=== PATIENT | female | born 1955 | race Caucasian/White ===

== ENCOUNTER → 2024-09-09 10:11 | Outpatient (BNVA) | payer OTHER, SELFPAY | PROVIDERS: PCP Internal Medicine; Visit Provider Internal Medicine | DX: I10 Essential (primary) hypertension (principal); K51.90 Ulcerative colitis, unspecified, without complications; M81.0 Age-related osteoporosis without current pathological fracture; R42 Dizziness and giddiness; F41.9 Anxiety disorder, unspecified; Z79.899 Other long term (current) drug therapy | CPT/HCPCS: 96127 ==

== ENCOUNTER → 2024-09-09 10:11 | Outpatient (AMB) | payer OTHER, SELFPAY ==
--- NOTE | 2024-09-09 10:20 | A.OFFPC_ITS ---
Vital Signs 09/09/24 10:23 Height 5 ft 3 in Weight 133 lb 8 oz BMI 23.6 BP 120/82 Blood Pressure Location Lt brachial Position Sitting Pulse 72 Pulse Source Pulse Oximeter Pulse Oximetry (%) 98 Oxygen Delivery Method Room Air Intake Visit Reasons: new patient Panel Flow Machine Operator Required: No Accompanied by: Self / Same As Patient Allergies acetaminophen [From Percocet] Adverse Reaction (Severe, Verified 09/09/24 11:01) Anxiety oxycodone [From Percocet] Adverse Reaction (Severe, Verified 09/09/24 11:01) Anxiety amoxicillin Adverse Reaction (Verified 09/09/24 11:01) uti Medication List - Last Reconciled 09/09/24 by Brandt Perales MD alendronate 70 mg PO QWEEK amlodipine 5 mg PO DAILY balsalazide 750 mg PO BID lisinopril 20 mg PO DAILY lorazepam 0.5 mg PO DAILY PRN meclizine 25 mg PO DAILY PRN Tobacco use date assessed: 09/09/24 Fall risk assessment: No Falls in past year Last assessed Fall Risk: 09/09/24 Dental Screening Dental Screen Date: 09/09/24 Did you have a dental visit in the last 12 months?: Yes Did you have a dental problem in the last 6 months where you did not have access to dental care?: No Was dental information given to patient?: Patient has dentist HPI new patient HPI Details Patient comes in today to establish care - is a new patient to the practice States that she just moved back here to [facility] from [place] last year; was living in [place] for the past 5 years Reports that she has been on Alendronate for a couple of years now and last had her BMD done about 1 to 1.5 years now Also reports (+) Hx of ulcerative colitis and she has been well-maintained on Colazal for years States that she had her most recent colonoscopy done last year (2023) and was reportedly advised that her colonoscopy was normal She also reports that she suffers from anxiety but she takes her Lorazepam only once a day and on an as-needed basis anxiety -- on Lorazepam PRN She has occasional bouts of vertigo but these are mostly mild and self-limiting She denies any headaches Denies any chest pains, no SOB No nausea/vomiting, no abdominal pain No change in bowel habits noted States that she will need all of her Rx refilled She last had her annual mammogram done about 3 years ago in [facility] Medical History (Updated 09/12/24 @ 07:06 by Brandt Perales MD) Vertigo Anxiety Osteoporosis Essential hypertension Ulcerative colitis Surgical History (Updated 09/12/24 @ 07:08 by Brandt Perales MD) History of colonoscopy History of elbow surgery History of left knee surgery Hx of vaginal hysterectomy Family History Other Dementia Social History Housing: House Patient Tobacco Use Status: Never used Tobacco e-Cigarette/Vaping Use: Never Used Second Hand Smoke Exposure: No service: No Current occupational status: retired Current occupational exposures/hazards: No Cognitive needs: No Hearing needs: No Vision needs: No Questionnaire PHQ-9 Over the last 2 weeks, how often have you been bothered by any of the following problems? 1. Little interest or pleasure in doing things: not at all 2. Feeling down, depressed, or hopeless: several days 3. Trouble falling or staying asleep, or sleeping too much: not at all 4. Feeling tired or having little energy: not at all 5. Poor appetite or overeating: not at all 6. Feeling bad about yourself - or that you are a failure or have let yourself or your family down: not at all 7. Trouble concentrating on things, such as reading the newspaper or watching television: not at all 8. Moving or speaking so slowly that other people could have noticed. Or the opposite - being so fidgety or restless that you have been moving around a lot more than usual: not at all 9. Thoughts that you would be better off or of hurting yourself in some way: not at all Total score: 1 Depression Screening Interpretation: Negative Depression Screening Done: Yes 75099 - PHQ-9 Billing: Yes Source: Developed by Drs. Demarcus Brown, Sharon Andersen, Neno Schumacher and colleagues, with an educational ludy from [employer]. Thrive Questionnaire Date Thrive assessed: 09/09/24 I am a: Patient What is your living situation today?: I have a steady place to live Within the past 12 months, did the food you bought not last and you didn't have the money to get more?: Never true Within the past 12 months, did you worry whether your food would run out before you got money to buy more?: Never true Do you have trouble paying for medicines?: No Do you have trouble getting transportation to medical appointments?: No Do you have trouble paying your heating and electricity bill?: No Do you have trouble taking care of your child, family member or friend?: No Do you have trouble with day-to-day activities such as bathing, preparing meals, shopping, managing finances, etc.?: No Are you currently unemployed and looking for a job?: No Are you interested in more education?: No Please select the resources that you would like help with: None Currently or been in a relationship where the following occur: No concerns reported THRIVE Score: 0 AUDIT C Alcohol Use Questionnaire (AUDIT-C) 1. How often do you have a drink containing alcohol?: Never 3. How often do you have six or more drinks on one occasion?: Never Total Score: 0 Score Reviewed/Action Taken: Yes LAZ-7 AMB Questionnaire LAZ-7 Date LAZ - 7 assessed: 09/09/24 Feeling nervous, anxious, or on edge: 0 = Not at all Not being able to stop or control worryin = Not at all Worrying too much about different things: 0 = Not at all Trouble relaxin = Not at all Being so restless that it is hard to sit still: 0 = Not at all Becoming easily annoyed or irritable: 0 = Not at all Feeling afraid as if something awful might happen: 0 = Not at all Total LAZ-7 score (0-4 normal; 5-9 mild; 10-14 moderate; 15-21 severe): 0 Source: Developed by Drs. Demarcus Brown, Sharon Andersen, Neno Schumacher and colleagues, with an educational ludy from [employer]. Review of Systems Const Denies chills, Denies fatigue, Denies fever(s) and Denies headache(s) ENT Denies dysphagia, Reports dizziness (has occasional bouts of vertigo), Denies otalgia, Denies headache(s), Denies neck pain, Denies odynophagia and Denies sore throat Card Denies chest pain, Denies irregular heart rhythm, Denies palpitations and Denies dyspnea Resp Denies chest congestion, Denies cough and Denies dyspnea GI Denies abdominal pain, Denies hematochezia, Denies constipation, Denies dysphagia, Denies diarrhea, Denies nausea, Denies odynophagia and Denies vomiting Denies difficulty voiding, Denies nocturia, Denies dysuria and Denies urinary urgency Musc Denies back pain and Denies neck pain Skin/Breast Denies rash Neuro Reports dizziness (has occasional bouts of vertigo) and Denies headache(s) Psych Reports anxiety and Denies depression Endo Denies fatigue and Denies palpitations Physical exam (Primary Care) Vital Signs: Last Vital Signs Pulse 72 09/09/24 10:23 BP 120/82 09/09/24 10:23 Pulse Ox 98 09/09/24 10:23 Oxygen Delivery Method Room Air 09/09/24 10:23 BMI result Body Mass Index 23.6 Tobacco/Smoking Status: Tobacco use Status Tobacco use date assessed 09/09/24 09/09/24 10:32 Patient Tobacco Use Status Never used Tobacco 09/09/24 10:32 e-Cigarette/Vaping Use Never Used 09/09/24 10:32 PHQ-9: PHQ-9 Score PHQ-9: Total score 1 09/09/24 11:06 Depression Screening Interpretation: Negative Thrive Assessment: Date of Thrive Assessment Date Thrive assessed 09/09/24 09/09/24 10:32 Currently or been in a relationship where the following occur: No concerns reported Const General: no acute distress and alert HENMT Ears: TM's normal bilaterally and EAC's normal Throat: Yes posterior oropharynx normal and Yes tonsils normal (no TP congestion noted) Neck Neck: Yes supple and No lymphadenopathy Thyroid: Thyroid normal Resp Auscultation: clear to auscultation bilaterally, no rales and no wheezes Cardio Rate: regular rate Rhythm: regular rhythm Heart sounds: no murmurs GI Palpation (GI): Soft to palpation and nontender Auscultation: normal bowel sounds General: Yes no CVA tenderness Back/Spine/Pelvis Back: no CVA tenderness Cervical Spine: No Cervical spine tenderness Thoracic/Lumbar Spine: No lumbar spinal tenderness Extrem General: Yes no clubbing, cyanosis or edema Coding Level of Care Code New Pt Level 4 (32516) Diagnoses Essential hypertension I10 Ulcerative colitis without complications, unspecified location K51.90 Ulcerative colitis location: unspecified ulcerative colitis location Digestive disease complication type: without complication Age-related osteoporosis without current pathological fracture M81.0 Osteoporosis type: age-related Presence of current pathological fracture: without current pathological fracture Vertigo R42 Anxiety F41.9 Encounter for screening mammogram for malignant neoplasm of breast Z12.31 Breast cancer screening modality: mammogram Additional Codes PHQ-9 - 28342 - PHQ-9 Billing: Yes ([id number]) Assessment & Plan Assessment & Plan (1) Essential hypertension: Code(s): I10 - Essential (primary) hypertension Category: Medical Plan: Reinforced low sodium diet - goal is systolic BP of 120 mm or less Continue Lisinopril 20 mg QD and Amlodipine 5 mg QD - Rx refilled Will have patient check her labs and fasting lipids in 4 months for follow up (2) Ulcerative colitis: Code(s): K51.90 - Ulcerative colitis, unspecified, without complications Category: Medical Qualifiers: Ulcerative colitis location: unspecified ulcerative colitis location Digestive disease complication type: without complication Qualified Code(s): K51.90 - Ulcerative colitis, unspecified, without complications Plan: Stable/controlled Continue Balsalazide 750 mg BID She had her follow up colonoscopy last done in 2023 - colonoscopy was reportedly normal Will refer her to GI for continuing follow up and management of her inflammatory bowel condition (3) Osteoporosis: Code(s): M81.0 - Age-related osteoporosis without current pathological fracture Category: Medical Qualifiers: Osteoporosis type: age-related Presence of current pathological fracture: without current pathological fracture Qualified Code(s): M81.0 - Age- related osteoporosis without current pathological fracture Plan: Patient reports that she had her last BMD done about 1 to 1.5 years ago Continue Alendronate 70 mg once a week She is reminded to continue to exercise regularly and to continue taking her OTC Calcium and Vitamin D supplements daily (4) Vertigo: Code(s): R42 - Dizziness and giddiness Category: Medical Plan: States that she has occasional bouts of vertigo but these tend to be self- limited and last only for a few minutes Continue Meclizine 25 mg QD PRN - Rx refilled (5) Anxiety: Code(s): F41.9 - Anxiety disorder, unspecified Category: Medical Plan: Continue Lorazepam 0.5 mg PRN (6) Breast cancer screening: Code(s): Z12.39 - Encounter for other screening for malignant neoplasm of breast Category: Medical Qualifiers: Breast cancer screening modality: mammogram Qualified Code(s): Z12.31 - Encounter for screening mammogram for malignant neoplasm of breast Plan: Will send patient for her annual mammogram Plan Follow up in 4 months Orders: Orders Lipid Panel 4 Months E78.00 - Pure hypercholesterolemia, unspecified TSH reflex Free T4 4 Months E78.00 - Pure hypercholesterolemia, unspecified Vitamin D 25-OH Total 4 Months E55.9 - Vitamin D deficiency, unspecified Vitamin B12 and Folate 4 Months E53.8 - Deficiency of other specified B group vitamins MM tomosynthesis screening BI 09/09/24 Z12.31 - Encounter for screening mammogram for malignant neoplasm of breast Complete Blood Count Auto Diff 4 Months D64.9 - Anemia, unspecified Comprehensive [place]. Panel Fast 4 Months E78.00 - Pure hypercholesterolemia, unspecified UA CC w/rflx Micro + Cult 4 Months R30.0 - Dysuria Referrals Gastroenterology Referral K51.90 - Ulcerative colitis, unspecified, without complications Medications: New balsalazide 750 mg PO BID 90 days 180 caps 1RF K51.90 - Ulcerative colitis, unspecified, without complications lisinopril 20 mg PO DAILY 90 days 90 tabs 1RF I10 - Essential (primary) hypertension alendronate 70 mg PO QWEEK 3 months 13 tabs 1RF M81.0 - Age-related osteoporosis without current pathological fracture amlodipine 5 mg PO DAILY 90 days 90 tabs 1RF I10 - Essential (primary) hypertension lorazepam 0.5 mg PO DAILY 90 days PRN 90 tabs 0RF anxiety F41.9 - Anxiety disorder, unspecified meclizine 25 mg PO DAILY 90 days PRN 90 tabs 0RF dizziness/vertigo R42 - Dizziness and giddiness
== END | disposition home or self-care (01) ==
PROVIDERS: PCP Internal Medicine; Visit Provider Internal Medicine

== ENCOUNTER 2024-10-07 15:00 | Outpatient (REF) | payer MEDICARE, SELFPAY ==
--- OUTSIDE RECORDS SUMMARY | 2024-10-07 18:33 | XMS_ITS ---
Author Organization [facility] Address [address] [place] [address] Care Team Providers Care Oil And Gas Field Technician Name Role Phone Roberta Dhillon Primary Care Provider Abner Conway Unavailable [phone] REASON FOR VISIT PredniSONE TAPER Medications Medication SIG (Take, Route, Fr equency, Duration) Notes Start Date End Date Status predniSONE 10 MG as directed Orally t aper 40 mg once daily for 3 weeks, then 30 mg for 1 week, 20 mg for 1 week, 10 mg for 1 week for 42 days 05/07/2023 Active Encounters Encounter Location Date Provider Diagnosis [place] [facility] [address] [place], [place] [id number] 05/07/2023 Abner Watts Plan Of Treatment Medication Medication Name Sig Start Date Stop Date Notes predniSONE 10 MG as directed Orally t aper 40 mg once daily for 3 weeks, then 30 mg for 1 week, 20 mg for 1 week, 10 mg for 1 week for 42 days 05/07/2023 Prednisone Progress Notes * Katharina STOCKTONDOB: (68 yo F)Acc No.[id number]:05/07/2023 Patient:?XaviercainalfredoGabi axel :1955???Age:68 Y???Sex:Female Address:[place] [address] * Refills? Stop Prednisone Start predniSONE Tablet, 10 MG, Orally, 126, as directed, taper 40 mg once daily for 3 weeks, then 30 mg for 1 week, 20 mg for 1 week, 10 mg for 1 week, 42 days, Refills=0 * true * Date:? Generated for Katie goel/Yuliya/Jordon on:?10/07/2024 06:33 PM EST
--- OUTSIDE RECORDS SUMMARY | 2024-10-07 18:33 | XMS_ITS ---
Author Organization [facility] Address [address] [place] [address] Care Team Providers Care Armored Machine Operator Name Role Phone Roberta Dhillon Primary Care Provider Abner Conway Unavailable [phone] Medications Medication SIG (Take, Route, Fr equency, Duration) Notes Start Date End Date Status Mesalamine 1000 MG 1 suppository at bed time Rectal Once a day for 30 days 07/09/2023 Ac tive predniSONE 10 MG as directed Orally t aper 40 mg once daily for 3 weeks, then 30 mg for 1 week, 20 mg for 1 week, 10 mg for 1 week for 42 days 05/07/2023 Unknown GaviLyte-G [id number] GM as directed Orally a s directed for 2 DAYS 05/07/2023 Unknown Lisinopril Unknown Amlodipine Unknown Alendronate Sodium U nknown Balsalazide Disodium Unknown Problems Problem Type SNOMED Code ICD Code Onset Dates Problem Status W/U Status Risk Notes Problem Left sided ulcerative colitis (206698182) Left sided colitis without complications (K51.50) Active confirmed Encounters Encounter Location Date Provider Diagnosis [facility] [address] [place], [place] [id number] 07/09/2023 Abner Watts Left sided colitis without complications K51.50 and Acute colitis K52.9 Assessments Encounter Date Diagnosis (ICD Code) Assessment Notes Treatment Notes Treatment Clinical Notes Section Notes 07/09/2023 Left sided colitis without complications (ICD-10 - K51.50) 07/09/2023 Acute colitis (ICD-10 - K52.9) Plan Of Treatment Medication Medication Name Sig Start Date Stop Date Notes Mesalamine 1000 MG 1 suppository at bed time Rectal Once a day for 30 days 07/09/2023 Next Appt Details Follow Up: prn, Reason: Progress Notes * Katharina STOCKTONDOB: (68 yo F)Acc No.[id number]:07/09/2023 Patient:?Gabi Stockton yl Provider:Zoraida Watts :1955???Age:68 Y???Sex:Female D ate:07/09/2023 Address:[facility] Pcp:Roberta Dhillon * * Sign off status: Completed true * Provider:Zoraida Watts Date:?07/09/2023 Generated for Katie goel/Yuliya/Jordon on:?10/07/2024 06:33 PM EST
--- OUTSIDE RECORDS SUMMARY | 2024-10-07 18:34 | XMS_ITS ---
Author Organization [facility] Address [address] [place] [address] Care Team Providers Care Nutrient Management Specialist Name Role Phone Roberta Dhillon Primary Care Provider Abner Conway Unavailable [phone] Allergies Allergen (clinical drug ingredient) Drug/Non Drug Allergy documented on EMR Reaction Allergy Type Onset Date Status acetaminophen / oxycodone Percocet Unknown Drug Allergy Active amoxicillin Amoxicillin Unknown Drug Allergy Act kevin REASON FOR VISIT Post procedure visit, LAB REVIEW Medications Medication SIG (Take, Route, Fr equency, Duration) Notes Start Date End Date Status Amlodipine Active Lisinopril Active Balsalazide Disodium Active Alendronate Sodium A ctive Vital Signs Respiratory Rate 14 /min 07/18/2023 Height 63 in 07/18/2023 Weight 134 lbs 07/18/2023 BMI 23.73 kg/m2 07/18/2023 Encounters Encounter Location Date Provider Diagnosis [place] [facility] - [facility] [address] [place], [place] [id number] 07/18/2023 Abner Watts Other ulcerative colitis without complications K51.80 Assessments Encounter Date Diagnosis (ICD Code) Assessment Notes Treatment Notes Treatment Clinical Notes Section Notes 07/18/2023 Other ulcerative colitis without complications (ICD-10 - K51.80) - Reviewed with patient the recent colonoscopy findings which support remission status. - Continue balsalazide to maintain remission. - Perform routine colonoscopies every 2 to 3 years to monitor for potential malignancy due to increased risk of colon cancer associated with ulcerative colitis. - Annual follow-up visits unless symptoms such as abdominal pain or GI bleeding recur. Plan Of Treatment Treatment Notes Assessment Notes Other ulcerative colitis wit hout complications - Reviewed with patient the recent colonoscopy findings which support remission status. - Continue balsalazide to maintain remission. - Perform routine colonoscopies every 2 to 3 years to monitor for potential malignancy due to increased risk of colon cancer associated with ulcerative colitis. - Annual follow-up visits unless symptoms such as abdominal pain or GI bleeding recur. Next Appt Details Follow Up: prn, Reason: Progress Notes * Katharina STOCKTONDOB: (68 yo F)Acc No.[id number]:07/18/2023 Progress Notes Patient:?Gabi Stockton yl Provider:?Abner Watts :1955???Age:68 Y???Sex:Female D ate:07/18/2023 Address:[address] [place], [place] [address] Pcp:Roberta Dhillon Subjective: * Chief Complaints: * ???Post procedure visit, LAB REVIEW * HPI: ???:? The patient is a 68 year old female who has a history of ulcerative colitis presenting for follow up after colonoscopy. In the past, the patient attempted to discontinue balsalazie previously, which resulted in the return of symptoms, specifically rectal bleeding. The patient reports that the symptoms resolved upon resuming medication. The most recent colonoscopy showed minimal erythema in the rectum, but the remainder of the colon appeared normal, with biopsies confirming no active colitis. The patient is currently taking balsalazide and has been prescribed mesalamine suppositories which are not covered by her insurance. The patient is asymptomatic at present. * Medical History:? * Surgical History:?GALLBLADDE R HYSTERECTOMY sacrocopopexy * Hospitalization/Major Diagno stic Procedure:? * Family History:?Father: dece ased.?Mother: .? * Social History:?Drugs/Alcohol:?Alcohol Use: none. Tobacco use: Nonsmoker. * Medications:?TakingBalsalazi de Disodium Alendronate Sodium Amlodipine Lisinopril Medication List reviewed and reconciled with the patientTaking Balsalazide Disodium Taking Alendronate Sodium Taking Amlodipine Taking Lisinopril Medication List reviewed and reconciled with the patient * Allergies:?PercocetAmoxicill inno[Allergies Verified] Objective: * Vitals:?Ht: 63 in, Wt:134 lb s, BMI:23.73 Index, RR:14, Wt-k.78. * Physical Examination:?General: Alert, in no acute cardiopulmonary distress. ? Mental Status: Oriented to person, place and time. Normal affect. ? Head: Normocephalic. ? Eyes: Pupils are equal, round and reactive to light. Extraocular muscles intact. ? Ear, Nose and Throat: Oropharynx clear, mucous membranes moist. Ears and nose without masses, lesions or deformities. Trachea midline. ? Neck: Supple, Full range of motion. ? Respiratory: Clear to auscultation and percussion. No wheezing, rales or rhonchi. ? Cardiovascular: Heart sounds normal. No thrills. Regular rate and rhythm, no murmurs, rubs or gallops. ? Gastrointestinal: Abdomen soft, non-tender, non-distended. Normal bowel sounds. No pulsatile mass. No hepatosplenomegaly. ? Genitourinary: No costovertebral angle tenderness. ? Neurologic: No focal neurological deficits. Moves all extremities spontaneously. Sensation intact bilaterally. Assessment: * Assessment: 1.?Other ulcerative colitis without complications - K51.80 (Primary)? Plan: * Treatment: * Procedure Codes:?G8427 DOC M EDS VERIFIED W/PT OR RE * Follow Up:?prn * * Sign off status: Completed true * Provider:Zoraida Watts Date:?07/18/2023 Generated for Katie goel/Yuliya/eTransmitting on:?10/07/2024 06:33 PM EST History and Physical Notes * Physical Examination Category Sub-Category Detail Notes Section Note s General: Alert, in no acute cardiopulmonary distress. Mental Status: Oriented to person, place and time. Normal affect. Head: Normocephalic. Eyes: Pupils are equal, round and reactive to light. Extraocular muscles intact. Ear, Nose and Throat: Oropharynx clear, mucous membranes moist. Ears and nose without masses, lesions or deformities. Trachea midline. Neck: Supple, Full range of motion. Respiratory: Clear to auscultation and percussion. No wheezing, rales or rhonchi. Cardiovascular: Heart sounds normal. No thrills. Regular rate and rhythm, no murmurs, rubs or gallops. Gastrointestinal: Abdomen soft, non-tender, non-distended. Normal bowel sounds. No pulsatile mass. No hepatosplenomegaly. Genitourinary: No costovertebral angle tenderness. Neurologic: No focal neurological deficits. Moves all extremities spontaneously. Sensation intact bilaterally.
--- OUTSIDE RECORDS SUMMARY | 2024-10-07 18:34 | XMS_ITS | Patient Health Record ---
Author Organization [facility] Address [address] [place] [address] Care Team Providers Care Rail Splitter Name Role Phone Roberta Dhillon Primary Care Provider Komal coello MacAbner ibarra Unavailable [phone] Allergies Allergen (clinical drug ingredient) Drug/Non Drug Allergy documented on EMR Reaction Allergy Type Onset Date Status acetaminophen / oxycodone Percocet Unknown Drug Allergy Active amoxicillin Amoxicillin Unknown Drug Allergy Act kevin Reason For Referral No Information Medications Medication SIG (Take, Route, Fr equency, Duration) Notes Start Date End Date Status Amlodipine Active Lisinopril Active Balsalazide Disodium Active Alendronate Sodium A ctive Problems Problem Type SNOMED Code ICD Code Onset Dates Problem Status W/U Status Risk Notes Problem Left sided ulcerative colitis (120429062) Left sided colitis without complications (K51.50) Active confirmed Problem 12837435 Other ulcerative colitis without complications (K51.80) Active confirmed Plan Of Treatment Pending Test Test Name Order Date CMP 05/07/2023 CBC 05/07/2023 CRP 05/07/2023 CLOSTRIDIUM DIFFICILE TOXIN A AND B, EIA 05/07/2023 Hepatitis B surface antigen 05/07/2023 Calprotectin, Fecal 05/07/2023 COLONOSCOPY 05/07/2023 Quantiferon Gold TB Test 05/07/2023 Insurance Providers Payer Name Payer Address Payer Phone Subscriber Number Group Number Insured Name Patient Relationship to Insured Coverage Start Date Coverage End Date [employer] REPLACEMENT [address] [place] [address] [phone] [id number] Katharina Mcfarland Self - patient is the insured Medical (General) History Medical History History ICD Code UC HPB OSTEOPOROSIS Surgical History Surgery Date(Month/Year) sacrocopopexy 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
== END 2024-10-07 15:01 | disposition home or self-care (01) ==
LOC: HO.MAMMO 15:00
PROVIDERS: PCP Internal Medicine; Visit Provider Internal Medicine
DX: Z12.31 Encounter for screening mammogram for malignant neoplasm of breast (principal)
CPT/HCPCS: 77063; 77067

== ENCOUNTER → 2024-10-07 15:15 | Outpatient (BNV) | payer MEDICARE, SELFPAY | PROVIDERS: PCP Internal Medicine; Visit Provider Internal Medicine | DX: Z12.31 Encounter for screening mammogram for malignant neoplasm of breast (principal) | CPT/HCPCS: 77063; 77067 ==

== ENCOUNTER 2024-12-08 08:47 | Outpatient (AMB) | payer OTHER, SELFPAY ==
--- NOTE | 2024-12-08 08:56 | MHC.OFFVIS ---
Vital Signs 12/08/24 08:58 Height 5 ft 3 in Weight 130 lb 1.164 oz BMI 23.0 BP 123/67 Blood Pressure Location Lt brachial Position Sitting Pulse 68 Intake Visit Reasons: Ulcerative Colitis Intake Note: Katharina presents in the office as a new patient for UC. CC: She came from [place] and she needs a new GI specialist. She was originally from here and moved for 5 years - states she is now back here! Last colo was in [place]. Construction Equipment Operator Required: No Allergies acetaminophen [From Percocet] Adverse Reaction (Severe, Verified 12/08/24 08:58) Anxiety oxycodone [From Percocet] Adverse Reaction (Severe, Verified 12/08/24 08:58) Anxiety amoxicillin Adverse Reaction (Verified 12/08/24 08:58) uti HPI Comments Details: 69 y.o F with PMH of UC diagnosed in her 40s, prev used to be under care of Dr Calvert and then moved to [place] in 2019. Returned Jul 2024 so looking to establish care. IBD Hx: Location: Pt doesnt know Age/yr of diagnosis: Early 2004, 49 y.o Prev meds: Asacol Current meds: balsalazide 750 BID since 2020 Steroid use: 1-2 times - 2022 for a flare Surgeries: N/A Recent endoscopy: [address] [facility] Recent imaging: EIM: None Fam hx: possibly in aunt - had her colon taken out Currently intermittent abd discomfort in the suprapubic area. Has 1-2 BMs per day that are formed. No blood. No joint pains, vision changes. [facility] History Vertigo Anxiety Osteoporosis Essential hypertension Ulcerative colitis Surgical History History of colonoscopy History of elbow surgery History of left knee surgery Hx of vaginal hysterectomy Family History Other Dementia Social History Housing: House Patient Tobacco Use Status: Never used Tobacco e-Cigarette/Vaping Use: Never Used Second Hand Smoke Exposure: No service: No Current occupational status: retired Current occupational exposures/hazards: No Cognitive needs: No Hearing needs: No Vision needs: No Review of Systems Const All systems reviewed & are unremarkable except as noted in HPI and below Physical Exam Vital Signs: Last Vital Signs Pulse 68 12/08/24 08:58 BP 123/67 12/08/24 08:58 BMI result Body Mass Index 23.0 No apparent distress Nonicteric Abdomen soft, nondistended Alert and oriented x3, normal gait Assessment & Plan Assessment & Plan (1) Ulcerative colitis: Code(s): K51. - Ulcerative colitis, unspecified, without complications Category: Medical Qualifiers: Ulcerative colitis location: unspecified ulcerative colitis location Digestive disease complication type: without complication Qualified Code(s): K51. - Ulcerative colitis, unspecified, without complications Plan Ulcerative colitis. - Quiescent based on clinical hx - Disease and therapy: remission. - Fecal calpro: ordered. - Check CBC, CMP - Will also get hep serology and TSPOT in case needs biologic in future - Nutrition: Check iron, B12 and folate - Immunization: Uptodate - Bone Health: Known osteoporosis. Check Vit D and dexa. - Cancer prevention: IBD dysplasia: colonoscopy due 2024 - msg sent to book this. Miralax prep preferred by pt. Pt to also bring records from [place]. Sun safety discussed. Up to date on pap and mammo. Orders: Orders C Reactive Protein Today K51.90 - Ulcerative colitis, unspecified, without complications Complete Blood Count no Diff Today K51.90 - Ulcerative colitis, unspecified, without complications Comprehensive Met. Panel Today K51.90 - Ulcerative colitis, unspecified, without complications Hepatitis A IgG Today K51.90 - Ulcerative colitis, unspecified, without complications Hepatitis B Core Antibody Today K51.90 - Ulcerative colitis, unspecified, without complications Hepatitis B Surface Antibody Today K51.90 - Ulcerative colitis, unspecified, without complications Hepatitis C Antibody Today K51.90 - Ulcerative colitis, unspecified, without complications T Spot TB Today K51.90 - Ulcerative colitis, unspecified, without complications XR DEXA axial skeleton Today M81.0 - Age-related osteoporosis without current pathological fracture Calprotectin, Fecal Today K51.90 - Ulcerative colitis, unspecified, without complications Vitamin B12 and Folate Today K51.90 - Ulcerative colitis, unspecified, without complications Vitamin D 25-OH Total Today K51.90 - Ulcerative colitis, unspecified, without complications Transglutaminase IgA Today K51.90 - Ulcerative colitis, unspecified, without complications Immunoglobulin A Today K51.90 - Ulcerative colitis, unspecified, without complications Hepatitis B Surface Antigen Today K51.90 - Ulcerative colitis, unspecified, without complications Medications: New polyethylene glycol 3350 (Miralax) mix in 64oz gatorade for colonoscopy prep 238 grams PO ONCE 238 grams 0RF Coding Level of Care Code New Pt Level 4 (76520) Complex EM visit Add On G2211 Diagnoses Ulcerative colitis without complications, unspecified location K51.90 Ulcerative colitis location: unspecified ulcerative colitis location Digestive disease complication type: without complication
[2024-12-08 08:58] VITALS: BP 123/67; PULSE 68; BMI 23.0
--- OUTSIDE RECORDS SUMMARY | 2024-12-08 09:13 | XMS_ITS ---
Author Organization [facility] Address [address] [place] [address] Care Team Providers Care Radio Reporter Name Role Phone Roberta Dhillon Primary Care Provider Abner Conway Unavailable [phone] Medications Medication SIG (Take, Route, Fr equency, [...] Risk Notes Problem Left sided ulcerative colitis (844239250) Left sided colitis without complications (K51.50) Active confirmed Encounters Encounter Location Date Provider Diagnosis [facility] [address] [place], [place] [id number] 07/09/2023 Abner Watts Left sided colitis without [...] Notes * Katharina STOCKTONDOB: (68 yo F)Acc No.[id number]:07/09/2023 Patient:?Gabi Stockton yl Provider:Zoraida Watts :1955???Age:68 Y???Sex:Female D ate:07/09/2023 Address:[facility] [address] [facility] Pcp:Roberta Dhillon * * Sign off status: Completed true * Provider:Zoraida Watts Date:?07/09/2023 Generated for Katie goel/Yuliya/Jordon on:?12/08/2024 09:12 AM EDT
--- OUTSIDE RECORDS SUMMARY | 2024-12-08 09:13 | XMS_ITS ---
Author Organization [facility] Address [address] [place] [address] Care Team Providers Care Icebox Man Name Role Phone Roberta Dhillon Primary Care Provider Abner Conway Unavailable [phone] Allergies Allergen (clinical drug ingredient) Drug/Non Drug [...] Active Alendronate Sodium A ctive Vital Signs Height 63 in 07/18/2023 Weight 134 lbs 07/18/2023 BMI 23.73 kg/m2 07/18/2023 Respiratory Rate 14 /min 07/18/2023 Encounters Encounter Location Date Provider Diagnosis [place] [facility] - [facility] [address] [place], [place] [id number] 07/18/2023 Abner Watts Other ulcerative colitis without [...] Notes * Katharina STOCKTONDOB: (68 yo F)Acc No.[id number]:07/18/2023 Progress Notes Patient:?Gabi Stockton yl Provider:?Abner Watts :1955???Age:68 Y???Sex:Female D ate:07/18/2023 Address:[address] [place], [place] [address] Pcp:Roberta Dhillon Subjective: * Chief Complaints: * [...] Provider:Zoraida Watts Date:?07/18/2023 Generated for Katie goel/Yuliya/eTransmitting on:?12/08/2024 09:13 AM EDT History and Physical Notes * Physical Examination [...]
--- OUTSIDE RECORDS SUMMARY | 2024-12-08 09:13 | XMS_ITS | Patient Health Record ---
Author Organization [facility] Address [address] [place] [address] Care Team Providers Care Grit Removal Operator Name Role Phone Jacquie Roberta Primary Care Provider Komal coello Mac Abner Unavailable [phone] Allergies Allergen (clinical drug ingredient) Drug/Non Drug Allergy documented on EMR Reaction Allergy Type Onset Date Status acetaminophen / oxycodone Percocet Unknown Drug Allergy Active amoxicillin Amoxicillin Unknown Drug Allergy Act keivn Reason For Referral No Information Medications Medication SIG (Take, Route, Fr equency, Duration) Notes Start Date End Date Status Amlodipine Active Lisinopril Active Balsalazide Disodium Active Alendronate Sodium A ctive Problems Problem Type SNOMED Code ICD Code Onset Dates Problem Status W/U Status Risk Notes Problem 18910131 Other ulcerative colitis without complications (K51.80) Active confirmed Problem Left sided ulcerative colitis (398381391) Left sided colitis without complications (K51.50) Active confirmed Plan Of Treatment Pending Test [...] Coverage Start Date Coverage End Date [employer] [address] [place] [address] [phone] [id number] Katharina Mcfarland Self - patient is the insured Medical (General) History Medical History History ICD Code UC HPB OSTEOPOROSIS Surgical History Surgery Date(Month/Year) GALLBLADDER sacrocopopexy HYSTERECTOMY
== END 2024-12-08 09:45 | disposition home or self-care (01) ==
LOC: HO.HGI 08:48
PROVIDERS: PCP Internal Medicine; Visit Provider Internal Medicine
DX: K51.90 Ulcerative colitis, unspecified, without complications (principal)
CPT/HCPCS: 99204; G2211

== ENCOUNTER 2024-12-08 08:47 | Outpatient (REF) | payer OTHER, SELFPAY ==
[2024-12-08 11:51] LABS: Hematocrit 41.5 % (37.0-47.0); Hemoglobin 14.3 g/dl (12.0-16.0); Mean Corpuscular HGB Conc 34.5 g/dl (31.0-35.0); Mean Corpuscular Hemoglobin 31.8 pg (27.0-33.0); Mean Corpuscular Volume 92.2 fL (80.0-98.0); Mean Platelet Volume 10.5 fL (9.4-12.3); Platelet Count 259 X10*3/uL (160-400); Red Cell Distribution Width 12.2 % (11.0-16.0); White Blood Count 6.6 X10*3/uL (4.8-10.8)
[2024-12-08 12:30] LABS: Alanine Aminotransferase 22 U/L (0-31); Albumin Level 4.4 g/dL (3.5-5.0); Alkaline Phosphatase 51 U/L (39-117); Anion Gap 9 (12-20); Aspartate Amino Transferase 21 U/L (5-31); Bilirubin Total 0.5 mg/dL (0.0-1.0); Blood Urea Nitrogen 12 mg/dL (9-16); C Reactive Protein 0.19 mg/dL (< or = 0.50); Calcium 9.4 mg/dL (8.4-10.2); Carbon Dioxide 28 mmol/L (22-29); Chloride 109 mmol/L (96-108); Estimated Glomerular Filt Rate > 60; Glucose Random 91 mg/dL (60-115); Potassium 4.1 mmol/L (3.3-5.1); Sodium 142 mmol/L (135-145); Total Protein 7.1 g/dL (6.5-8.0)
[2024-12-08 12:47] LABS: Vitamin D 25-OH Total 42.5 ng/mL (>30)
[2024-12-08 12:55] LABS: HBS Num1 0.62 mIU/mL (0-7.99); HBc Num1 0.07 S/CO (0.00-0.79); HBsAGNum1 0.24 S/CO (0.00-0.99); Hepatitis B Core Antibody Nonreactive (Nonreactive); Hepatitis B Surface Antigen Negative (Negative); ~HepC Num1 0.09 S/CO (0.00-0.79); ~Hepatitis B Surface Antibody NONREACTIVE (Nonreactive); ~Hepatitis C Antibody Nonreactive (Nonreactive)
[2024-12-08 12:59] LABS: Vitamin B12 307 pg/mL (200-900)
[2024-12-09 04:00] LABS: Hepatitis A Antibody IgG Nonreactive (Nonreactive); ~Hepatitis A Antibody IgG 0.33 S/CO (0.00-0.99)
[2024-12-09 07:08] LABS: Immunoglobulin A 141 mg/dL (70-320)
[2024-12-09 21:24] LABS: Transglutaminase IgA <1.0 U/mL
[2024-12-11 09:54] LABS: TS Negative Control Passed; TS Panel A 0; TS Panel B 0; TS Positive Control Passed; TSpotTB Negative (Negative)
== END 2024-12-08 08:48 | disposition home or self-care (01) ==
LOC: HO.LAB 08:47
PROVIDERS: PCP Internal Medicine; Visit Provider Internal Medicine
DX: K51.90 Ulcerative colitis, unspecified, without complications (principal)
CPT/HCPCS: 36415; 80053; 82306; 82607; 82746; 82784; 85027; 86140; 86364; 86481; 86704; 86706; 86708; 86803; 87340

== ENCOUNTER 2024-12-12 16:40 | Outpatient (REF) | payer OTHER, SELFPAY ==
--- OUTSIDE RECORDS SUMMARY | 2024-12-13 11:17 | XMS_ITS ---
Author Organization [facility] Address [address] [place] [address] Care Team Providers Care Lawyer Name Role Phone Roberta Dhillon Primary Care Provider Abner Conway Unavailable [phone] Medications Medication SIG (Take, Route, Fr equency, [...] Risk Notes Problem Left sided ulcerative colitis (443525272) Left sided colitis without complications (K51.50) Active confirmed Encounters Encounter Location Date Provider Diagnosis [facility] [address] [place], [place] [id number] 07/09/2023 Abner Watts Left sided colitis without [...] Notes * Katharina STOCKTONDOB: (68 yo F)Acc No.[id number]:07/09/2023 Patient:?Gabi Stockton yl Provider:Zoraida Watts :1955???Age:68 Y???Sex:Female D ate:07/09/2023 Address:[facility] [address] [facility] Pcp:Roberta Dhillon * * Sign off status: Completed true * Provider:Zoraida Watts Date:?07/09/2023 Generated for Katie goel/Yuliya/Jordon on:?12/13/2024 11:17 AM EDT
--- OUTSIDE RECORDS SUMMARY | 2024-12-13 11:18 | XMS_ITS | Patient Health Record ---
Author Organization [facility] Address [address] [place] [address] Care Team Providers Care Forest Economics Professor Name Role Phone Roberta Dhillon Primary Care Provider Komal coello MacAbner ibarra Unavailable [phone] Allergies Allergen (clinical drug ingredient) Drug/Non Drug [...] Problem Status W/U Status Risk Notes Problem 28756919 Other ulcerative colitis without complications (K51.80) Active confirmed Problem Left sided ulcerative colitis (661605960) Left sided colitis without complications (K51.50) Active [...] Coverage End Date [employer] MED[employer]ARE [address] [place] [address] [id number] Katharina Mcfarland Self - patient is the insured Medical (General) History Medical History History ICD Code UC HPB OSTEOPOROSIS Surgical History Surgery Date(Month/Year) sacrocopopexy 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
--- OUTSIDE RECORDS SUMMARY | 2024-12-13 11:18 | XMS_ITS ---
Author Organization [facility] Address [address] [place] [address] Care Team Providers Care Curing Finisher Name Role Phone Roberta Dhillon Primary Care Provider Abner Conway Unavailable [phone] Allergies Allergen (clinical drug ingredient) Drug/Non Drug [...] 07/18/2023 Encounters Encounter Location Date Provider Diagnosis [place] [facility] - [facility] [address] [place], [place] [id number] 07/18/2023 Abner Watts Other ulcerative colitis without [...] Notes * Katharina STOCKTONDOB: (68 yo F)Acc No.[id number]:07/18/2023 Progress Notes Patient:?Gabi Stockton yl Provider:?Abner Watts :1955???Age:68 Y???Sex:Female D ate:07/18/2023 Address:[address] [place], [place] [address] Pcp:Roberta Dhillon Subjective: * Chief Complaints: [...] Provider:Zoraida Watts Date:?07/18/2023 Generated for Katie goel/Yuliya/eTransmitting on:?12/13/2024 11:17 AM EDT History and Physical Notes * [...]
[2024-12-17 20:18] LABS: Calprotectin, Fecal 49 mcg/g
== END 2024-12-12 16:41 | disposition home or self-care (01) ==
LOC: HO.LNP 16:40
PROVIDERS: Visit Provider Internal Medicine
DX: K51.90 Ulcerative colitis, unspecified, without complications (principal)
CPT/HCPCS: 83993

== ENCOUNTER 2025-01-05 10:56 | Outpatient (REF) | payer OTHER, SELFPAY ==
--- NOTE | ~2025-01-05 | MM_ITS ---
EXAMINATION: DXA BONE DENSITY AXIAL HISTORY: M81.0 - Age-related osteoporosis without current pathological fracture TECHNIQUE: [employer] (ZEEP) Dual energy absorptiometry (DEXA) of the lumbar spine, total left hip, and femoral neck was performed. COMPARISON: There are no prior studies for comparison. FINDINGS: The bone mineral density of the lumbar spine is 0.838, corresponding to a T-score of -2.8, and a Z-score of -1.0. This is indicative of osteoporosis. The bone mineral density of the left total hip is 0.629, corresponding to a T-score of -3.0, and a Z-score of -1.4. This is indicative of osteoporosis. The bone mineral density of the left femoral neck is 0.637, corresponding to a T-score of -2.9, and a Z-score of -1.1. This is indicative of osteoporosis. MM/XR DEXA axial skeleton IMPRESSION: Based on bone mineral density, and according to World Health Organization (WHO) criteria, the diagnosis is consistent with osteoporosis. All bone density values are in grams per centimeter squared (g/cm2). Statistically, 68% of repeat scans fall within 1 SD (+/- 0.010 g/cm2 for AP spine L1-L4) and 1 SD (+/- 0.012 g/cm2 for femur total) FRAX is a trademark of the [employer]'s [place] for Metabolic Bone Disease, a World Health Organization (WHO) Collaborating Center. Electronically signed by: Demarcus Villareal MD 01/05/2025 01:43 PM EDT
--- OUTSIDE RECORDS SUMMARY | 2025-01-05 11:54 | XMS_ITS | Patient Health Record ---
Author Organization [facility] Address [address] [place] [address] Care Team Providers Care Net Lead Developer Name Role Phone Roberta Dhillon Primary Care Provider Komal coello MacAbner ibarra Unavailable [phone] Allergies Allergen (clinical drug ingredient) Drug/Non Drug [...] Problem Status W/U Status Risk Notes Problem 04628450 Other ulcerative colitis without complications (K51.80) Active confirmed Problem Left sided ulcerative colitis (440875460) Left sided colitis without complications (K51.50) Active [...] Coverage End Date [employer] MED[employer]ARE [address] [place] [address] [id number] Katharina Mcfarland Self - patient is the insured Medical (General) History Medical History History ICD Code UC HPB OSTEOPOROSIS Surgical History Surgery Date(Month/Year) HYSTERECTOMY sacrocopopexy GALLBLADDER
== END 2025-01-05 10:57 | disposition home or self-care (01) ==
LOC: HO.MAMMO 10:56
PROVIDERS: PCP Internal Medicine; Visit Provider Internal Medicine
DX: M81.0 Age-related osteoporosis without current pathological fracture (principal)
CPT/HCPCS: 77080

== ENCOUNTER → 2025-01-05 11:00 | Outpatient (BNV) | payer OTHER, SELFPAY | PROVIDERS: PCP Internal Medicine; Visit Provider Radiology Diagnostic Radiology | DX: E28.39 Other primary ovarian failure (principal) | CPT/HCPCS: 77080 ==

== ENCOUNTER 2025-01-20 08:18 | Outpatient (REF) | payer MEDICARE, SELFPAY ==
--- OUTSIDE RECORDS SUMMARY | 2025-01-20 08:26 | XMS_ITS | Patient Health Record ---
Author Organization [facility] Address [address] [place] [address] Care Team Providers Care Mining Technician Name Role Phone Roberta Dhillon Primary Care Provider Komal coello Mac Abner Unavailable [phone] Allergies Allergen (clinical drug ingredient) Drug/Non Drug [...] Risk Notes Problem Left sided ulcerative colitis (824555633) Left sided colitis without complications (K51.50) Active confirmed Problem 27483709 Other ulcerative colitis without complications (K51.80) Active [...] Coverage End Date [employer] MED[employer]ARE [address] [place] [address] [id number] Katharina Mcfarland Self - patient is the insured Medical (General) History Medical History History ICD Code UC HPB OSTEOPOROSIS Surgical History Surgery Date(Month/Year) sacrocopopexy 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
== END 2025-01-20 08:19 | disposition home or self-care (01) ==
LOC: HO.SH 08:18
PROVIDERS: Visit Provider Internal Medicine
DX: H91.90 Unspecified hearing loss, unspecified ear (principal)
CPT/HCPCS: 92557; 92567

== ENCOUNTER 2025-01-24 06:52 | Outpatient (REF) | payer MEDICARE, SELFPAY ==
--- OUTSIDE RECORDS SUMMARY | 2025-01-24 06:54 | XMS_ITS | Patient Health Record ---
Author Organization [facility] Address [address] [place] [address] Care Team Providers Care Clinic Coordinator Name Role Phone Roberta Dhillon Primary Care Provider Komal coello MacAbner ibarra Unavailable [phone] Allergies Allergen (clinical drug ingredient) Drug/Non Drug [...] Problem Status W/U Status Risk Notes Problem 48761856 Other ulcerative colitis without complications (K51.80) Active confirmed Problem Left sided ulcerative colitis (738841311) Left sided colitis without complications (K51.50) Active [...] Coverage End Date [employer] [address] [place] [address] [id number] Katharina Mcfarland Self - patient is the insured Medical (General) History Medical History History ICD Code UC HPB OSTEOPOROSIS Surgical History Surgery Date(Month/Year) GALLBLADDER sacrocopopexy HYSTERECTOMY
[2025-01-24 07:10] LABS: MANUAL DIFF FLAG NO
[2025-01-24 07:31] LABS: Basophils Absolute Auto 0.1 X10*3/uL (0.0-0.2); Eosinophils Absolute Auto 0.1 X10*3/uL (0.0-0.4); Hematocrit 41.6 % (37.0-47.0); Hemoglobin 14.2 g/dl (12.0-16.0); Imm Gran Abs Auto 0.03 X10*3/uL (0.00-0.03); Imm Gran Pct Auto 0.4 % (0.0-0.4); Lymphocytes Absolute Auto 2.8 X10*3/uL (1.2-4.9); Lymphocytes Percent Auto 40.1 % (20-40); Mean Corpuscular HGB Conc 34.1 g/dl (31.0-35.0); Mean Corpuscular Hemoglobin 31.4 pg (27.0-33.0); Mean Platelet Volume 10.3 fL (9.4-12.3); Monocytes Absolute Auto 0.6 X10*3/uL (0.1-1.2); Monocytes Percent Auto 7.9 % (2-11); Neutrophils Absolute Auto 3.5 x10*3/uL (2.0-8.3); Neutrophils Percent Auto 48.6 % (45-73); Platelet Count 228 X10*3/uL (160-400); Red Blood Count 4.52 X10*6/uL (4.20-5.50); Red Cell Distribution Width 11.9 % (11.0-16.0); White Blood Count 7.1 X10*3/uL (4.8-10.8)
[2025-01-24 07:44] LABS: Appearance Urine Clear; Color Urine Yellow; Glucose Urine UA Negative (Negative); Leukocyte Esterase Urine Small (1+) (Negative); Nitrite Urine Negative (Negative); Specific Gravity - Urine 1.025 (1.005-1.025); UMIC TRIGGER UACC YES; Urine Blood Negative (Negative); Urine Ketones Trace mg/dL (Negative); Urine Protein Negative (Neg-Trace)
[2025-01-24 07:57] LABS: Bacteria Urine None Seen (None Seen); Hyaline Casts Urine 0-2 /LPF (0-2); RBC Urine 0-2 /HPF (0-2); Squamous Epithelial Cell Urine 0-2 /HPF (0-2); UACC Culture Trigger YES; WBC Urine 0-5 /HPF (0-5)
[2025-01-24 08:04] LABS: Alanine Aminotransferase 18 U/L (0-31); Albumin Level 4.5 g/dL (3.5-5.0); Anion Gap 13 (12-20); Aspartate Amino Transferase 24 U/L (5-31); Bilirubin Total 0.5 mg/dL (0.0-1.0); Blood Urea Nitrogen 16 mg/dL (9-16); Calcium 9.5 mg/dL (8.4-10.2); Carbon Dioxide 25 mmol/L (22-29); Chloride 109 mmol/L (96-108); Estimated Glomerular Filt Rate > 60; Glucose Fasting 106 mg/dL (60-99); Potassium 3.9 mmol/L (3.3-5.1); Sodium 143 mmol/L (135-145)
[2025-01-24 08:05] LABS: Alkaline Phosphatase 47 U/L (39-117); Cholesterol 210 mg/dL (<200); HDL Cholesterol 54 mg/dL (>40); LDL Cholesterol Calculated 125 mg/dL (<100); Triglycerides 155 mg/dL (<150)
[2025-01-24 08:24] LABS: TSH reflex Free T4 2.91 uIU/mL (0.32-4.0); Vitamin D 25-OH Total 47.4 ng/mL (>30)
[2025-01-24 08:29] LABS: Folate 10.8 ng/mL (> or = 4.0); Vitamin B12 275 pg/mL (200-900)
== END 2025-01-24 06:53 | disposition home or self-care (01) ==
LOC: HO.LAB 06:52
PROVIDERS: PCP Internal Medicine; Visit Provider Internal Medicine
DX: E78.00 Pure hypercholesterolemia, unspecified (principal); E55.9 Vitamin D deficiency, unspecified; E53.8 Deficiency of other specified B group vitamins; D64.9 Anemia, unspecified; R30.0 Dysuria
CPT/HCPCS: 36415; 80053; 80061; 81001; 82306; 82607; 82746; 84443; 85025; 87086

== ENCOUNTER 2025-02-03 09:31 | Outpatient (AMB) | payer OTHER, SELFPAY ==
[2025-02-03 09:34] VITALS: BP 118/82; PULSE 76; O2SAT 98; BMI 23.6
--- NOTE | 2025-02-03 09:34 | MHC.PC.OV ---
Vital Signs 02/03/25 09:34 Height 5 ft 3 in Weight 133 lb BMI 23.6 BP 118/82 Blood Pressure Location Lt brachial Position Sitting Pulse 76 Pulse Source Pulse Oximeter Pulse Oximetry (%) 98 Oxygen Delivery Method Room Air Intake Visit Reasons: HTN, ulcerative colitis, osteoporosis Director Of Loss Prevention Required: No Accompanied by: Self / Same As Patient Allergies acetaminophen (From Percocet) Adverse Reaction (Severe, Verified 02/03/25 09:54) Anxiety oxycodone (From Percocet) Adverse Reaction (Severe, Verified 02/03/25 09:54) Anxiety amoxicillin Adverse Reaction (Verified 02/03/25 09:54) uti Medication List - Last Reconciled 02/03/25 by Barndt Perales MD alendronate 70 mg PO QWEEK 3 months amlodipine 5 mg PO DAILY 90 days balsalazide 750 mg PO BID 90 days lisinopril 20 mg PO DAILY 90 days lorazepam 0.5 mg PO DAILY PRN 90 days meclizine 25 mg PO DAILY PRN 90 days polyethylene glycol 3350 (Miralax) 238 grams PO ONCE Tobacco use date assessed: 02/03/25 Fall risk assessment: No Falls in past year Last assessed Fall Risk: 02/03/25 Dental Screening Dental Screen Date: 02/03/25 Did you have a dental visit in the last 12 months?: Yes Did you have a dental problem in the last 6 months where you did not have access to dental care?: No Was dental information given to patient?: Patient has dentist HPI HTN, ulcerative colitis, osteoporosis HPI Details Patient comes in today for her follow up visit States that she feels okay except for on and off pain and discomfort in her right hip area for the past few weeks Recalls that her symptoms started a few weeks ago when she got up from a chair and suddenly felt a sharp pain in her right hip area States that she normally walks a total of 5 to 6 miles a day but she does not recall any recent injury or trauma to her hip Notes that it sometimes feel like her hip is going to give out on her when she is walking She denies any headaches or dizziness lately Denies any chest pains, no SOB No nausea/vomiting, no abdominal pain No change in bowel habits noted Needs most of her Rx refilled today, including her Lorazepam She had her follow up labs done last week - to discuss her results [facility] Medical History (Updated 02/03/25 @ 10:18 by Brandt Perales MD) Mixed hyperlipidemia Vertigo Anxiety Osteoporosis Essential hypertension Ulcerative colitis Surgical History History of colonoscopy History of elbow surgery History of left knee surgery Hx of vaginal hysterectomy Family History Other Dementia Social History Housing: House Patient Tobacco Use Status: Never used Tobacco e-Cigarette/Vaping Use: Never Used Second Hand Smoke Exposure: No service: No Current occupational status: retired Current occupational exposures/hazards: No Cognitive needs: No Hearing needs: No Vision needs: No Questionnaire PHQ-9 Over the last 2 weeks, how often have you been bothered by any of the following problems? 1. Little interest or pleasure in doing things: not at all 2. Feeling down, depressed, or hopeless: not at all 3. Trouble falling or staying asleep, or sleeping too much: several days 4. Feeling tired or having little energy: several days 5. Poor appetite or overeating: not at all 6. Feeling bad about yourself - or that you are a failure or have let yourself or your family down: not at all 7. Trouble concentrating on things, such as reading the newspaper or watching television: not at all 8. Moving or speaking so slowly that other people could have noticed. Or the opposite - being so fidgety or restless that you have been moving around a lot more than usual: several days 9. Thoughts that you would be better off or of hurting yourself in some way: not at all Total score: 3 Depression Screening Interpretation: Negative Depression Screening Done: Yes 44652 - PHQ-9 Billing: Yes Source: Developed by Drs. Demarcus Brown, Sharon Andersen, Neno Schumacher and colleagues, with an educational ludy from [employer]. Thrive Questionnaire Date Thrive assessed: 02/03/25 I am a: Patient What is your living situation today?: I have a steady place to live Within the past 12 months, did the food you bought not last and you didn't have the money to get more?: Never true Within the past 12 months, did you worry whether your food would run out before you got money to buy more?: Never true Do you have trouble paying for medicines?: No Do you have trouble getting transportation to medical appointments?: No Do you have trouble paying your heating and electricity bill?: No Do you have trouble taking care of your child, family member or friend?: No Do you have trouble with day-to-day activities such as bathing, preparing meals, shopping, managing finances, etc.?: No Are you currently unemployed and looking for a job?: No Are you interested in more education?: No Please select the resources that you would like help with: None Currently or been in a relationship where the following occur: No concerns reported THRIVE Score: 0 AUDIT C Alcohol Use Questionnaire (AUDIT-C) 1. How often do you have a drink containing alcohol?: Never 3. How often do you have six or more drinks on one occasion?: Never Total Score: 0 Score Reviewed/Action Taken: Yes LAZ-7 AMB Questionnaire LAZ-7 Date LAZ - 7 assessed: 02/03/25 Feeling nervous, anxious, or on edge: 0 = Not at all Not being able to stop or control worryin = Not at all Worrying too much about different things: 0 = Not at all Trouble relaxin = Not at all Being so restless that it is hard to sit still: 0 = Not at all Becoming easily annoyed or irritable: 0 = Not at all Feeling afraid as if something awful might happen: 0 = Not at all Total LAZ-7 score (0-4 normal; 5-9 mild; 10-14 moderate; 15-21 severe): 0 Source: Developed by Drs. Demarcus Brown, Sharon Andersen, Neno Schumacher and colleagues, with an educational ludy from [employer]. Review of Systems Const Denies chills, Denies fatigue, Denies fever(s) and Denies headache(s) ENT Denies dysphagia, Denies dizziness, Denies otalgia, Denies headache(s), Denies neck pain, Denies odynophagia and Denies sore throat Card Denies chest pain, Denies palpitations and Denies dyspnea Resp Denies chest congestion, Denies cough and Denies dyspnea GI Denies abdominal pain, Denies constipation, Denies dysphagia, Denies heartburn, Denies diarrhea, Denies nausea, Denies odynophagia and Denies vomiting Denies difficulty voiding, Denies nocturia, Denies dysuria and Denies urinary urgency Musc Denies back pain, Reports arthralgias (on and off in the right hip - see HPI) and Denies neck pain Skin/Breast Denies rash Neuro Denies dizziness and Denies headache(s) Psych Reports anxiety (Lorazepam helps) Endo Denies fatigue and Denies palpitations Physical exam (Primary Care) Vital Signs: Last Vital Signs Pulse 76 02/03/25 09:34 BP 118/82 02/03/25 09:34 Pulse Ox 98 02/03/25 09:34 Oxygen Delivery Method Room Air 02/03/25 09:34 BMI result Body Mass Index 23.6 Tobacco/Smoking Status: Tobacco use Status Tobacco use date assessed 02/03/25 02/03/25 09:40 Patient Tobacco Use Status Never used Tobacco 02/03/25 09:40 e-Cigarette/Vaping Use Never Used 02/03/25 09:40 PHQ-9: PHQ-9 Score PHQ-9: Total score 3 02/03/25 09:40 Depression Screening Interpretation: Negative Thrive Assessment: Date of Thrive Assessment Date Thrive assessed 02/03/25 02/03/25 09:40 Currently or been in a relationship where the following occur: No concerns reported Const General: no acute distress and alert HENMT Ears: TM's normal bilaterally and EAC's normal Throat: Yes posterior oropharynx normal and Yes tonsils normal (no TP congestion) Neck Neck: Yes supple and No lymphadenopathy Resp Auscultation: clear to auscultation bilaterally, no rales and no wheezes Cardio Rate: regular rate Rhythm: regular rhythm Heart sounds: no murmurs GI Palpation (GI): Soft to palpation and nontender Auscultation: normal bowel sounds General: Yes no CVA tenderness Back/Spine/Pelvis Back: no CVA tenderness Thoracic/Lumbar Spine: No lumbar spinal tenderness Skin Rashes: no rashes Extrem General: Yes no clubbing, cyanosis or edema Right lower extremity: hip/thigh Details: tenderness Location: of the hip Location: anterolaterally Results Reviewed Results Reviewed: Laboratory Tests 01/24/25 01/24/25 07:04 07:08 WBC 7.1 Hgb 14.2 Hct 41.6 Plt Count 228 Sodium 143 Potassium 3.9 Creatinine 0.71 Estimated GFR > 60 Fasting Glucose 106 H Calcium 9.5 AST 24 ALT 18 Triglycerides 155 H Cholesterol 210 H LDL Cholesterol, Calc 125 H HDL Cholesterol 54 Vitamin B12 275 25-OH Vitamin D Total 47.4 TSH 2.91 Ur Specific [place] 1.025 Urine Protein Negative Urine Glucose (UA) Negative Urine Blood Negative Urine Nitrite Negative Ur Leukocyte Esterase Small (1+) H Coding Level of Care Code Est Pt Level 4 (36493) Diagnoses Essential hypertension I10 Mixed hyperlipidemia E78.2 Impaired fasting glucose R73.01 Ulcerative colitis without complications, unspecified location K51.90 Ulcerative colitis location: unspecified ulcerative colitis location Digestive disease complication type: without complication Age-related osteoporosis without current pathological fracture M81.0 Osteoporosis type: age-related Presence of current pathological fracture: without current pathological fracture Right hip pain M25.551 Vertigo R42 Anxiety F41.9 Additional Codes PHQ-9 - 44753 - PHQ-9 Billing: Yes ([id number]) Assessment & Plan Assessment & Plan (1) Essential hypertension: Code(s): I10 - Essential (primary) hypertension Category: Medical Plan: Reinforced low sodium diet - goal is systolic BP of 120 mm or less Continue Lisinopril 20 mg QD and Amlodipine 5 mg QD - Rx refilled Patient is reminded to check and monitor her blood pressure regularly (2) Mixed hyperlipidemia: Code(s): E78.2 - Mixed hyperlipidemia Category: Medical Plan: Results of her labs done last week reviewed and discussed with patient - patient is advised that her cholesterol levels are high normal, including her total and LDL cholesterol as well as her serum TG levels Discussed low cholesterol diet Will have patient recheck her labs and fasting lipids in 4 to 5 months for follow up (3) Impaired fasting glucose: Code(s): R73.01 - Impaired fasting glucose Category: Medical Plan: She is advised that her FBS is slightly above normal on her recent labs Discussed low calorie/low carb diet Will recheck her FBS in a few months for follow up (4) Ulcerative colitis: Code(s): K51.90 - Ulcerative colitis, unspecified, without complications Category: Medical Qualifiers: Ulcerative colitis location: unspecified ulcerative colitis location Digestive disease complication type: without complication Qualified Code(s): K51.90 - Ulcerative colitis, unspecified, without complications Plan: Stable/controlled Continue Balsalazide 750 mg BID - Rx refilled She had her follow up colonoscopy last done in 2023 - colonoscopy was reportedly normal Follow up with GI as scheduled for continuing management of her inflammatory bowel condition (5) Osteoporosis: Code(s): M81.0 - Age-related osteoporosis without current pathological fracture Category: Medical Qualifiers: Osteoporosis type: age-related Presence of current pathological fracture: without current pathological fracture Qualified Code(s): M81.0 - Age-related osteoporosis without current pathological fracture Plan: Results of her BMD done last month reviewed and discussed with patient - her T score is at -2.8, consistent with osteoporosis Continue Alendronate 70 mg once a week - patient states that she has been on this Rx for about 3 years now Plan is to continue on current Rx for a total of 5 years, after which patient will be reassessed She is reminded to continue to exercise regularly and to continue taking her OTC Calcium and Vitamin D supplements daily but fall precautions reinforced (6) Right hip pain: Code(s): M25.551 - Pain in right hip Category: Medical Plan: Suspect (+) OA of the right hip Will send patient for right hip x-rays for further evaluation (7) Vertigo: Code(s): R42 - Dizziness and giddiness Category: Medical Plan: States that she still has occasional bouts of vertigo but these tend to be self-limited and last only for a few minutes Continue Meclizine 25 mg QD PRN (8) Anxiety: Code(s): F41.9 - Anxiety disorder, unspecified Category: Medical Plan: Continue Lorazepam 0.5 mg PRN - Rx refilled Plan Follow up in 4 to 5 months Orders: Orders Comprehensive [place]. Panel Fast 06/18/25 E78.00 - Pure hypercholesterolemia, unspecified Hemoglobin A1c 06/18/25 R73.01 - Impaired fasting glucose XR hip RT min 2V Today M25.551 - Pain in right hip Lipid Panel 06/18/25 E78.00 - Pure hypercholesterolemia, unspecified Collagen Crosslinks NTX 06/18/25 M81.0 - Age-related osteoporosis without current pathological fracture Medications: Refilled alendronate 70 mg PO QWEEK 13 tabs 1RF 3 months M81.0 - Age-related osteoporosis without current pathological fracture balsalazide 750 mg PO BID 180 caps 1RF 90 days K51.90 - Ulcerative colitis, unspecified, without complications lisinopril 20 mg PO DAILY 90 tabs 1RF 90 days I10 - Essential (primary) hypertension lorazepam 0.5 mg PO DAILY PRN 90 tabs 0RF anxiety 90 days F41.9 - Anxiety disorder, unspecified amlodipine 5 mg PO DAILY 90 tabs 1RF 90 days I10 - Essential (primary) hypertension
--- OUTSIDE RECORDS SUMMARY | 2025-02-03 09:53 | XMS_ITS | Patient Health Record ---
Author Organization [facility] Address [address] [address] Care Team Providers Care Fly Worker Name Role Phone Roberta Dhillon Primary Care Provider Komal coello Mac Abner Unavailable [phone] Allergies Allergen (clinical drug ingredient) Drug/Non Drug [...] Problem Status W/U Status Risk Notes Problem [id number] Other ulcerative colitis without complications (K51.80) Active confirmed Problem Left sided ulcerative colitis ([id number]) Left sided colitis without complications (K51.50) Active [...] Coverage End Date [employer] [address] [place] [address] [id number] Katharina Mcfarland Self - patient is the insured Medical (General) History Medical History History ICD Code UC HPB OSTEOPOROSIS Surgical History Surgery Date(Month/Year) GALLBLADDER HYSTERECTOMY sacrocopopexy
== END 2025-02-03 10:12 | disposition home or self-care (01) ==
LOC: HO.HMCH 09:32
PROVIDERS: PCP Internal Medicine; Visit Provider Internal Medicine
DX: I10 Essential (primary) hypertension (principal); E78.2 Mixed hyperlipidemia; R73.01 Impaired fasting glucose; K51.90 Ulcerative colitis, unspecified, without complications; M81.0 Age-related osteoporosis without current pathological fracture; M25.551 Pain in right hip; R42 Dizziness and giddiness; F41.9 Anxiety disorder, unspecified

== ENCOUNTER → 2025-02-03 09:31 | Outpatient (BNVA) | payer OTHER, SELFPAY | PROVIDERS: PCP Internal Medicine; Visit Provider Internal Medicine | DX: I10 Essential (primary) hypertension (principal); M81.0 Age-related osteoporosis without current pathological fracture; E78.2 Mixed hyperlipidemia; R73.01 Impaired fasting glucose; K51.90 Ulcerative colitis, unspecified, without complications; M25.551 Pain in right hip; R42 Dizziness and giddiness; F41.9 Anxiety disorder, unspecified | CPT/HCPCS: 96127 ==

== ENCOUNTER 2025-02-14 13:52 | Outpatient (REF) | payer OTHER, SELFPAY ==
--- NOTE | ~2025-02-14 | XR_ITS ---
EXAMINATION: XR HIP, RIGHT CLINICAL INFORMATION: M25.551 - Pain in right hip COMPARISON: None available. TECHNIQUE: AP and frog-leg lateral views of the right hip. FINDINGS: There is subtle axial joint space narrowing. Small marginal ossified is are evident along the femoral head. There are small enthesophytes involving greater trochanter. XR/XR hip RT min 2V IMPRESSION: Mild degenerative changes. Electronically signed by: Vitaly Esquivel MD 02/14/2025 02:23 PM EDT
--- OUTSIDE RECORDS SUMMARY | 2025-02-14 15:07 | XMS_ITS | Patient Health Record ---
Author Organization [facility] Address [address] [place] [address] Care Team Providers Care Seed Cleaning Manager Name Role Phone Jacquie Roberta Primary Care Provider Komal coello Mac Abner Unavailable [phone] Allergies Allergen (clinical drug ingredient) Drug/Non Drug [...] Problem Status W/U Status Risk Notes Problem [id number] Other ulcerative colitis without complications (K51.80) Active confirmed Problem Left sided colit is without complications (K51.50) Active confirmed Plan Of [...] Coverage End Date [employer] [address] [place] [address] [id number] Mandi oliver Katharina Self - patient is the insured Medical (General) History Medical History History ICD Code UC HPB OSTEOPOROSIS Surgical History Surgery Date(Month/Year) GALLBLADDER HYSTERECTOMY sacrocopopexy
== END 2025-02-14 13:53 | disposition home or self-care (01) ==
LOC: HO.XRAY 13:52
PROVIDERS: Visit Provider Internal Medicine
DX: M25.551 Pain in right hip (principal)
CPT/HCPCS: 73502

== ENCOUNTER → 2025-02-14 13:56 | Outpatient (BNV) | payer OTHER, SELFPAY | PROVIDERS: Visit Provider Radiology Diagnostic Radiology | DX: M25.551 Pain in right hip (principal) | CPT/HCPCS: 73502 ==

== ENCOUNTER 2025-02-24 13:14 | Outpatient (AMB) | payer OTHER, SELFPAY ==
--- NOTE | 2025-02-24 13:16 | MHC.PC.OV ---
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: No Accompanied by: Self / Same As Patient Allergies acetaminophen (From Percocet) Adverse Reaction (Severe, Verified 02/24/25 13:38) Anxiety oxycodone (From Percocet) Adverse Reaction (Severe, Verified 02/24/25 13:38) Anxiety amoxicillin Adverse Reaction (Verified 02/24/25 13:38) uti Medication List - Last Reconciled 02/24/25 by THAI Thomas alendronate 70 mg PO QWEEK 3 months amlodipine 5 mg PO DAILY 90 days balsalazide 750 mg PO BID 90 days lisinopril 20 mg PO DAILY 90 days lorazepam 0.5 mg PO DAILY PRN 90 days meclizine 25 mg PO DAILY PRN 90 days polyethylene glycol 3350 (Miralax) 238 grams PO ONCE Tobacco use date assessed: 02/24/25 Fall risk assessment: No Falls in past year Last assessed Fall Risk: 02/24/25 Dental Screening Dental Screen Date: 02/24/25 Did you have a dental visit in the last 12 months?: Yes Did you have a dental problem in the last 6 months where you did not have access to dental care?: No Was dental information given to patient?: No HPI [facility] 03/15 upperliod sugery HPI Details The patient is 69 year old patient presenting for bilateral upper eyelid sugery. The patient of Dr. Perales, last seen in office on 02/03/25. The patient reports that she went in for a regular visit with her eye doctor and they referred her to Dr. Prashant Brand. Reports that her eyelids are drooping and she could them in her vision. Surgeon/Locaton: Dr. Brand at [facility] in [place], [place]. The surgery will be done at [address] [place] [address], [address] Anesthesia: MAC. The patient reports multiple surgeries before and she has gotten general anesthesia without any issue. The patient denies any post surgical hypothermia or clotting disorsers, and she is not on any blood thinners or DMARDs. She is balsalazide 750mg BID for Ulcerative colitis-stop the medication one before surgery and resume three days after. Past medical history significant for osteoporosis, essential hypertension, ulcerative colitis, anxiety, mixed hyperlipidemia, impaired fasting glucose Patient denies chest pain, SOB, dizziness, heart palpitation Denies abdominal pain or change in bowel habits Denies any urinary symptoms Patient had a EKG done in office that was normal sinus without any ectopy or ischemia. A1c done in office was 5.5% ? [facility] Medical History Mixed hyperlipidemia Vertigo Anxiety Osteoporosis Essential hypertension Ulcerative colitis Surgical History History of colonoscopy History of elbow surgery History of left knee surgery Hx of vaginal hysterectomy Family History Other Dementia Social History Housing: House Patient Tobacco Use Status: Never used Tobacco e-Cigarette/Vaping Use: Never Used Second Hand Smoke Exposure: No service: No Current occupational status: retired Current occupational exposures/hazards: No Cognitive needs: No Hearing needs: No Vision needs: No Questionnaire Thrive Questionnaire Date Thrive assessed: 02/24/25 I am a: Patient What is your living situation today?: I have a steady place to live Within the past 12 months, did the food you bought not last and you didn't have the money to get more?: Never true Within the past 12 months, did you worry whether your food would run out before you got money to buy more?: Never true Do you have trouble paying for medicines?: No Do you have trouble getting transportation to medical appointments?: No Do you have trouble paying your heating and electricity bill?: No Do you have trouble taking care of your child, family member or friend?: No Do you have trouble with day-to-day activities such as bathing, preparing meals, shopping, managing finances, etc.?: No Are you currently unemployed and looking for a job?: No Are you interested in more education?: No Please select the resources that you would like help with: None Currently or been in a relationship where the following occur: No concerns reported THRIVE Score: 0 LAZ-7 AMB Questionnaire LAZ-7 Date LAZ - 7 assessed: 02/24/25 Source: Developed by Drs. Demarcus Brown, Sharon Andersen, Neno Schumacher and colleagues, with an educational ludy from [employer]. Review of Systems Const Denies headache(s) Eyes Denies loss of vision ENT Denies vertigo, Denies dizziness, Denies headache(s) and Denies sore throat Card Denies chest pain, Denies leg edema and Denies lightheadedness Resp Denies cough, Denies hemoptysis and Denies wheezing GI Denies abdominal pain, Denies melena, Denies constipation, Denies diarrhea and Denies vomiting Denies urinary frequency, Denies dysuria and Denies urinary urgency Musc Reports arthralgias (Right hip on and off), Denies joint swelling, Denies numbness and Denies tingling Neuro Denies Abnormal speech present, Denies behavioral changes, Denies vertigo, Denies dizziness, Denies headache(s), Denies loss of vision, Denies memory loss, Denies numbness and Denies tingling Psych Reports anxiety (Stable on treatment), Denies behavioral changes, Denies depression, Denies memory loss and Denies panic attacks Parag/Lymph Denies easy bleeding and Denies easy bruising Aller/Immun Denies wheezing Physical exam (Primary Care) Vital Signs: Last Vital Signs Temp 98.4 F 02/24/25 13:18 Pulse 86 02/24/25 13:18 BP 140/78 H 02/24/25 13:18 Pulse Ox 97 02/24/25 13:18 Oxygen Delivery Method Room Air 02/24/25 13:18 BMI result Body Mass Index 23.8 Tobacco/Smoking Status: Tobacco use Status Tobacco use date assessed 02/24/25 02/24/25 13:24 Patient Tobacco Use Status Never used Tobacco 02/24/25 13:24 e-Cigarette/Vaping Use Never Used 02/24/25 13:24 Thrive Assessment: Date of Thrive Assessment Date Thrive assessed 02/24/25 02/24/25 13:24 Currently or been in a relationship where the following occur: No concerns reported Const General: healthy appearing, no acute distress, alert and awake Nutritional Appearance: well nourished Orientation/consciousness: oriented to person, oriented to place and oriented to time HENMT Ears: TM's normal bilaterally General nose exam: Normal nasal mucous membranes and turbinates present Eyes Conjunctivae: conjunctivae normal Sclerae: sclerae normal Pupils: Equal, round and reactive pupils present Neck Neck: Yes no lymphadenopathy and Yes no JVD Thyroid: Thyroid normal Carotids: no bruits Resp Effort & Inspection: normal respiratory effort and not tachypneic Auscultation: no crackles, no rales, no rhonchi and no wheezes Cardio Rate: regular rate Rhythm: regular rhythm Heart sounds: S1 normal heart sound present, S2 normal heart sound present, no murmurs and normal S1 and S2 GI Palpation (GI): Soft to palpation, nontender, no hepatomegaly and no splenomegaly Auscultation: normal bowel sounds General: Yes no CVA tenderness Back/Spine/Pelvis Back: no CVA tenderness Skin General skin exam: no rashes or lesions noted and dry skin Neuro General: oriented to person, oriented to place and oriented to time Cranial nerves: Yes Equal, round and reactive pupils present Speech: No Abnormal speech present Gait exam (Neuro): Normal gait present Motor exam (neuro): no tremor noted Extrem Right upper extremity: full ROM Left upper extremity: full ROM Right lower extremity: full ROM and hip/thigh Details: tenderness (On and off (anterior, lateral)); no edema Left lower extremity: full ROM; no edema Psych Mental Status: mental status grossly normal Speech and movement: Normal speech and movement present Affect: normal affect Attitude: cooperative Thought process: Normal thought process present Results AMB Hemoglobin A1c AMB Hemoglobin A1c 5.5 % Last Edit by Edith Arce CMA on 02/24/25 14:00 Results Reviewed Results Reviewed: Laboratory Last Values Hgb A1c (Clinic) 5.5 % (4.0-6.0) 02/24/25 13:59 Laboratory Tests 01/24/25 01/24/25 07:04 07:08 WBC 7.1 RBC 4.52 Hgb 14.2 Hct 41.6 MCV 92.0 MCH 31.4 MCHC 34.1 RDW 11.9 Plt Count 228 Sodium 143 Potassium 3.9 Chloride 109 H Carbon Dioxide 25 Anion Gap 13 BUN 16 Creatinine 0.71 Estimated GFR > 60 Fasting Glucose 106 H Calcium 9.5 Total Bilirubin 0.5 AST 24 ALT 18 Alkaline Phosphatase 47 Total Protein 7.0 Albumin 4.5 Triglycerides 155 H Cholesterol 210 H LDL Cholesterol, Calc 125 H HDL Cholesterol 54 Vitamin B12 275 25-OH Vitamin D Total 47.4 Folate 10.8 TSH 2.91 Urine Color Yellow Urine Appearance Clear Urine pH 5.0 Ur Specific [place] 1.025 Urine Protein Negative Urine Glucose (UA) Negative Urine Ketones Trace Urine Blood Negative Urine Nitrite Negative Ur Leukocyte Esterase Small (1+) H Urine RBC 0-2 Urine WBC 0-5 Ur Squamous Epith Cells 0-2 Urine Bacteria None Seen Hyaline Casts 0-2 Coding Level of Care Code Est Pt Level 4 (47889) Diagnoses Preoperative clearance Z01.818 Essential hypertension I10 Impaired fasting glucose R73.01 Age-related osteoporosis without current pathological fracture M81.0 Osteoporosis type: age-related Presence of current pathological fracture: without current pathological fracture Anxiety F41.9 Ulcerative colitis without complications, unspecified location K51.90 Digestive disease complication type: without complication Ulcerative colitis location: unspecified ulcerative colitis location Time Spent (min) 39 Assessment & Plan Assessment & Plan (1) Preoperative clearance: Code(s): Z01.818 - Encounter for other preprocedural examination Category: Medical Plan: Recent labs reviewed and EKG done in office. Regarding preop clearance, the patient is at acceptable risk for proposed surgery. Reviewed with the patient that no surgery is completely free of risk and that this examination is to assist the surgeon in reviewing informed consent. (2) Essential hypertension: Code(s): I10 - Essential (primary) hypertension Category: Medical Plan: Blood pressure 140/78 reinforced low salt diet, low caffeine/low alcohol use continue lisinopril 20 mg daily, amlodipine 5 mg daily (3) Impaired fasting glucose: Code(s): R73.01 - Impaired fasting glucose Category: Medical Plan: fasting glucose 106, A1C 5.5% reinforced low sugar/carbohydrate will continue to monitor (4) Osteoporosis: Code(s): M81.0 - Age-related osteoporosis without current pathological fracture Category: Medical Qualifiers: Osteoporosis type: age-related Presence of current pathological fracture: without current pathological fracture Qualified Code(s): M81.0 - Age-related osteoporosis without current pathological fracture Plan: Results of her BMD done last month reviewed and discussed with patient - her T score is at -2.8, consistent with osteoporosis Continue Alendronate 70 mg once a week - patient states that she has been on this Rx for about 3 years now Plan is to continue on current Rx for a total of 5 years, after which patient will be reassessed She is reminded to continue to exercise regularly and to continue taking her OTC Calcium and Vitamin D supplements daily but fall precautions reinforced (5) Anxiety: Code(s): F41.9 - Anxiety disorder, unspecified Category: Medical Plan: reinforced CBT lorazepam 0.5 mg daily PRN (6) Ulcerative colitis: Code(s): K51.90 - Ulcerative colitis, unspecified, without complications Category: Medical Qualifiers: Digestive disease complication type: without complication Ulcerative colitis location: unspecified ulcerative colitis location Qualified Code(s): K51.90 - Ulcerative colitis, unspecified, without complications Plan: Continue Balsalazide 750 mg BID - Hold this medication one day before surgery and resume 3 days after She had her follow up colonoscopy last done in 2023 - colonoscopy was reportedly normal Follow up with GI as scheduled for continuing management of her inflammatory bowel condition Orders: Orders AMB Hemoglobin A1c Today Z13.9 - Encounter for screening, unspecified
[2025-02-24 13:18] VITALS: BP 140/78; PULSE 86; TEMP 36.9; O2SAT 97; BMI 23.8
--- OUTSIDE RECORDS SUMMARY | 2025-02-24 13:26 | XMS_ITS | Encounter Summary ---
Author Organization [facility] Address [address] [place] [address] Care Team Providers Care Guide Alpine Name Role Phone Baldomero Scanlon MD Primary Care Provider + [phone] Reason for Visit * Reason Comments E-prescribe Rx Request Encounter Details Date Type Department Care Team Description 03/18/2016 Refill Adult Medicine [address] [address] Da Mack PA E-prescribe Rx Request Social History Tobacco Use Types Packs/Day Years Used Date Smoking Tobacco: Former Cigarettes 2 Q uit: 08/04/1976 Smokeless Tobacco: Former Comments:1976 occ cig Alcohol Use Standard Drinks/Week Comments No 0 (1 standard drink = 0.6 oz pur e alcohol) Sex Assigned at Date Recorded Not on file documented as of this encounter Miscellaneous Notes * Telephone Encounter - Adele Chase L.P.N. - 03/19/2016 3:58 PM EDT Component Value Date NA 142 08/25/2015 K 4.6 08/25/2015 CO2 25.0 08/25/2015 CL 103 08/25/2015 BUN 13 08/25/2015 CREAT 0.6 08/25/2015 GLU 82 08/25/2015 CA 9.3 08/25/2015 GFR > 60 08/25/2015 * Telephone Encounter - Annika Colby - 03/18/2016 1:36 PM EDT Patient would like script to be: E-PRESCRIBED/FAXED TO PHARMACY WHEN WAS THE PATIENT'S LAST APPOINTMENT IN ADULT MEDICINE? 09/25/15 WHEN WAS THE LAST TIME THE PATIENT SAW THEIR PCP? 08/13/11 Does patient have an upcoming appointment? Yes 03/29/16 (THE MEDICATION REQUESTED IS ON THE MED LIST ABOVE) All of the medications requested were on the CURRENT MEDS list Did you check the Pharmacy information above?: YES Patient wants: 30 -day supply Is this a mail order prescription request ? NO Patients current insurance carrier is: Payor: [employer] FFS / Plan: H[employer] CARE PLUS PLAN / Product Type: MEDICAID RISK documented in this encounter Plan of Treatment Not on file documented as of this encounter Visit Diagnoses Not on filedocumented in this encounter Care Teams Guide Alpine Relationship Specialty Start Date End Date Baldomero Scanlon MD [address] [place] [id number] PCP - General Internal Medicine 08/14/11 documented as of this encounter
--- OUTSIDE RECORDS SUMMARY | 2025-02-24 13:26 | XMS_ITS | Patient Health Record ---
Author Organization [facility] Address [address] [place] [address] Care Team Providers Care Invasive Physician Name Role Phone Roberta Dhillon Primary Care Provider Komal coello MacAbner ibarra Unavailable [phone] Allergies Allergen (clinical drug ingredient) Drug/Non Drug [...] Problem Status W/U Status Risk Notes Problem [id number] Other ulcerative colitis without complications (K51.80) Active confirmed Problem Left sided ulcerative colitis (791962475) Left sided colitis without complications (K51.50) Active [...] Coverage End Date [employer] [address] [place] [address] [id number] Katharina Mcfarland Self - patient is the insured Medical (General) History Medical History History ICD Code UC HPB OSTEOPOROSIS Surgical History Surgery Date(Month/Year) sacrocopopexy 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
== END 2025-02-24 16:10 | disposition home or self-care (01) ==
LOC: HO.HMCH 13:15
DX: I10 Essential (primary) hypertension (principal); K51.90 Ulcerative colitis, unspecified, without complications; Z01.818 Encounter for other preprocedural examination; R73.01 Impaired fasting glucose; M81.0 Age-related osteoporosis without current pathological fracture; F41.9 Anxiety disorder, unspecified

== ENCOUNTER → 2025-02-24 13:14 | Outpatient (BNVA) | payer OTHER, SELFPAY | DX: Z01.818 Encounter for other preprocedural examination (principal); I10 Essential (primary) hypertension; R73.01 Impaired fasting glucose; M81.0 Age-related osteoporosis without current pathological fracture; F41.9 Anxiety disorder, unspecified; K51.90 Ulcerative colitis, unspecified, without complications; Z79.899 Other long term (current) drug therapy | CPT/HCPCS: 83036 ==

== ENCOUNTER 2025-06-27 08:32 | Outpatient (REF) | payer MEDICARE, SELFPAY ==
--- OUTSIDE RECORDS SUMMARY | 2025-06-27 08:48 | XMS_ITS | Patient Health Record ---
Author Organization [facility] Address [address] [place] [address] Care Team Providers Care Bakery Technician Name Role Phone Jacquie Roberta Primary Care Provider Komal coello Mac Abner Unavailable [phone] Allergies Allergen (clinical drug ingredient) Drug/Non Drug [...] W/U Status Risk Notes Problem Ulcerative colitis (09753455) Other ulcerative colitis without complications (K51.80) Active confirmed Problem Left sided ulcerative colitis (671110194) Left sided colitis without complications (K51.50) Active [...] End Date [employer] [address] [place] [address] [id number] Katharina Mcfarland Self - patient is the insured Medical (General) History Medical History History ICD Code UC HPB OSTEOPOROSIS Surgical History Surgery Date(Month/Year) GALLBLADDER HYSTERECTOMY sacrocopopexy
[2025-06-27 09:38] LABS: Alanine Aminotransferase 16 U/L (0-31); Albumin Level 4.7 g/dL (3.5-5.0); Alkaline Phosphatase 50 U/L (39-117); Anion Gap 10 (12-20); Aspartate Amino Transferase 23 U/L (5-31); Blood Urea Nitrogen 16 mg/dL (9-16); Calcium 9.2 mg/dL (8.4-10.2); Carbon Dioxide 28 mmol/L (22-29); Chloride 109 mmol/L (96-108); Cholesterol 217 mg/dL (<200); Estimated Glomerular Filt Rate > 60; HDL Cholesterol 58 mg/dL (>40); Potassium 4.3 mmol/L (3.3-5.1); Sodium 143 mmol/L (135-145); Total Protein 7.5 g/dL (6.5-8.0); Triglycerides 147 mg/dL (<150)
[2025-07-03 10:43] LABS: NTXCreaRU 240 mg/dL (20-275)
== END 2025-06-27 08:33 | disposition home or self-care (01) ==
LOC: HO.LAB 08:32
PROVIDERS: PCP Internal Medicine; Visit Provider Internal Medicine
DX: M81.0 Age-related osteoporosis without current pathological fracture (principal); E78.00 Pure hypercholesterolemia, unspecified; R73.01 Impaired fasting glucose
CPT/HCPCS: 36415; 80053; 80061; 82523; 83036

== ENCOUNTER 2025-07-04 10:05 | Outpatient (AMB) | payer OTHER, SELFPAY ==
--- NOTE | 2025-07-04 10:07 | A.OFFPC_ITS ---
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 Required: No Accompanied by: Self / Same As Patient Allergies acetaminophen (From Percocet) Adverse Reaction (Severe, Verified 07/04/25 10:22) Anxiety oxycodone (From Percocet) Adverse Reaction (Severe, Verified 07/04/25 10:22) Anxiety amoxicillin Adverse Reaction (Verified 07/04/25 10:22) uti Medication List - Last Reconciled 07/04/25 by Brandt Perales MD alendronate 70 mg PO QWEEK 3 months amlodipine 5 mg PO DAILY 90 days balsalazide 750 mg PO BID 90 days lisinopril 20 mg PO DAILY 90 days lorazepam 0.5 mg PO DAILY PRN 90 days meclizine 25 mg PO DAILY PRN 90 days polyethylene glycol 3350 (Miralax) 238 grams PO ONCE Tobacco use date assessed: 07/04/25 Last assessed Fall Risk: 07/04/25 Dental Screening Dental Screen Date: 07/04/25 Did you have a dental visit in the last 12 months?: Yes Did you have a dental problem in the last 6 months where you did not have access to dental care?: No Was dental information given to patient?: Patient has dentist HPI HTN, hyperlipidemia, osteoporosis HPI Details Patient comes in today for her follow up visit States that she has been experiencing (+) pain in her left knee for the past 3 weeks Thinks that she may have somehow sprained or hurt her knee at some point but she does not recall any specific event that could have resulted in her current left knee injury Notes that the pain in her knee gets worse when she tried to kneel and put some weight on the knee She is also still experiencing on and off pain in her right hip but notes that this has been slowly improving/subsiding but states that she can still feel it when she walks too much or stands up for too long X-rays of the right hip done a few months ago revealed only (+) findings of mild osteoarthritis States that her recent eyelid surgery went well without any issues She denies any headaches or dizziness Denies any chest pains, no SOB No nausea/vomiting, no abdominal pain No change in bowel habits noted She needs a few of her Rx refilled and she now uses [facility] of [facility] She had her follow up labs done last week - to discuss her results [facility] Medical History Mixed hyperlipidemia Vertigo Anxiety Osteoporosis Essential hypertension Ulcerative colitis Surgical History History of colonoscopy History of elbow surgery History of left knee surgery Hx of vaginal hysterectomy Family History Other Dementia Social History Housing: House Patient Tobacco Use Status: Never used Tobacco e-Cigarette/Vaping Use: Never Used Second Hand Smoke Exposure: No service: No Current occupational status: retired Current occupational exposures/hazards: No Cognitive needs: No Hearing needs: No Vision needs: No Questionnaire PHQ-9 Over the last 2 weeks, how often have you been bothered by any of the following problems? 1. Little interest or pleasure in doing things: not at all 2. Feeling down, depressed, or hopeless: not at all 3. Trouble falling or staying asleep, or sleeping too much: several days 4. Feeling tired or having little energy: several days 5. Poor appetite or overeating: not at all 6. Feeling bad about yourself - or that you are a failure or have let yourself or your family down: not at all 7. Trouble concentrating on things, such as reading the newspaper or watching television: not at all 8. Moving or speaking so slowly that other people could have noticed. Or the opposite - being so fidgety or restless that you have been moving around a lot more than usual: several days 9. Thoughts that you would be better off or of hurting yourself in some way: not at all Total score: 3 Depression Screening Interpretation: Positive Depression Screening Follow-up: Follow-up Visit Requested Depression Screening Done: Yes 90003 - PHQ-9 Billing: Yes Source: Developed by Drs. Demarcus Brown, Sharon Andersen, Neno Schumacher and colleagues, with an educational ludy from [employer]. Thrive Questionnaire Date Thrive assessed: 07/04/25 I am a: Patient What is your living situation today?: I have a steady place to live Within the past 12 months, did the food you bought not last and you didn't have the money to get more?: Never true Within the past 12 months, did you worry whether your food would run out before you got money to buy more?: Never true Do you have trouble paying for medicines?: No Do you have trouble getting transportation to medical appointments?: No Do you have trouble paying your heating and electricity bill?: No Do you have trouble taking care of your child, family member or friend?: No Do you have trouble with day-to-day activities such as bathing, preparing meals, shopping, managing finances, etc.?: No Are you currently unemployed and looking for a job?: No Are you interested in more education?: No Please select the resources that you would like help with: None Currently or been in a relationship where the following occur: No concerns reported THRIVE Score: 0 AUDIT C Alcohol Use Questionnaire (AUDIT-C) 1. How often do you have a drink containing alcohol?: Never 3. How often do you have six or more drinks on one occasion?: Never Total Score: 0 Score Reviewed/Action Taken: Yes LAZ-7 AMB Questionnaire LAZ-7 Date LAZ - 7 assessed: 07/04/25 Feeling nervous, anxious, or on edge: 0 = Not at all Not being able to stop or control worryin = Not at all Worrying too much about different things: 0 = Not at all Trouble relaxin = Not at all Being so restless that it is hard to sit still: 0 = Not at all Becoming easily annoyed or irritable: 0 = Not at all Feeling afraid as if something awful might happen: 0 = Not at all Total LAZ-7 score (0-4 normal; 5-9 mild; 10-14 moderate; 15-21 severe): 0 Source: Developed by Drs. Demarcus Brown, Sharon Andersen, Neno Schumacher and colleagues, with an educational ludy from [employer]. Review of Systems Const Denies chills, Denies fatigue, Denies fever(s) and Denies headache(s) ENT Denies dysphagia, Denies dizziness, Denies otalgia, Denies headache(s), Denies neck pain, Denies odynophagia and Denies sore throat Card Denies chest pain, Denies palpitations and Denies dyspnea Resp Denies chest congestion, Denies cough and Denies dyspnea GI Denies abdominal pain, Denies constipation, Denies dysphagia, Denies heartburn, Denies diarrhea, Denies nausea, Denies odynophagia and Denies vomiting Denies difficulty voiding, Denies nocturia, Denies dysuria and Denies urinary urgency Musc Denies back pain, Reports arthralgias (on and off in the right hip; left knee pain over the past 3 weeks - see HPI) and Denies neck pain Skin/Breast Denies rash Neuro Denies dizziness and Denies headache(s) Psych Reports anxiety (Lorazepam helps) Endo Denies fatigue and Denies palpitations Physical exam (Primary Care) Vital Signs: Last Vital Signs Pulse 86 07/04/25 10:08 BP 110/78 07/04/25 10:08 Pulse Ox 98 07/04/25 10:08 Oxygen Delivery Method Room Air 07/04/25 10:08 BMI result Body Mass Index 24.0 Tobacco/Smoking Status: Tobacco use Status Tobacco use date assessed 07/04/25 07/04/25 10:13 Patient Tobacco Use Status Never used Tobacco 07/04/25 10:13 e-Cigarette/Vaping Use Never Used 07/04/25 10:13 PHQ-9: PHQ-9 Score PHQ-9: Total score 3 07/04/25 10:25 Depression Screening Interpretation: Positive Depression Screening Follow-up: Follow-up Visit Requested Thrive Assessment: Date of Thrive Assessment Date Thrive assessed 07/04/25 07/04/25 10:13 Currently or been in a relationship where the following occur: No concerns reported Const General: no acute distress and alert HENMT Ears: TM's normal bilaterally and EAC's normal Throat: Yes posterior oropharynx normal and Yes tonsils normal (no TP congestion) Neck Neck: Yes supple and No lymphadenopathy Resp Auscultation: clear to auscultation bilaterally, no rales and no wheezes Cardio Rate: regular rate Rhythm: regular rhythm Heart sounds: no murmurs GI Palpation (GI): Soft to palpation and nontender Auscultation: normal bowel sounds General: Yes no CVA tenderness Back/Spine/Pelvis Back: no CVA tenderness Thoracic/Lumbar Spine: No lumbar spinal tenderness Skin Rashes: no rashes Extrem General: Yes no clubbing, cyanosis or edema Right lower extremity: hip/thigh (mild) Details: tenderness Location: of the hip Location: posterolaterally Left lower extremity: knee (mild) Details: tenderness Location: of the lateral joint line; no swelling Results Reviewed Results Reviewed: Laboratory Tests 06/27/25 06/27/25 08:41 08:47 Sodium 143 Potassium 4.3 Creatinine 0.77 Estimated GFR > 60 Fasting Glucose 105 H Hemoglobin A1c % 5.4 Calcium 9.2 AST 23 ALT 16 Triglycerides 147 Cholesterol 217 H LDL Cholesterol, Calc 130 H HDL Cholesterol 58 N-Telopeptide X-linked 43 Coding Level of Care Code Est Pt Level 4 (96944) Diagnoses Essential hypertension I10 Mixed hyperlipidemia E78.2 Impaired fasting glucose R73.01 Ulcerative colitis without complications, unspecified location K51.90 Digestive disease complication type: without complication Ulcerative colitis location: unspecified ulcerative colitis location Age-related osteoporosis without current pathological fracture M81.0 Osteoporosis type: age-related Presence of current pathological fracture: without current pathological fracture Right hip pain M25.551 Left knee pain, unspecified chronicity M25.562 Chronicity: unspecified Vertigo R42 Anxiety F41.9 Additional Codes PHQ-9 - 33571 - PHQ-9 Billing: Yes ([id number]) Assessment & Plan Assessment & Plan (1) Essential hypertension: Code(s): I10 - Essential (primary) hypertension Category: Medical Plan: Reinforced low sodium diet - goal is systolic BP of 120 mm or less Continue Lisinopril 20 mg QD and Amlodipine 5 mg QD - Rx refilled Patient is again reminded to monitor her blood pressure regularly (2) Mixed hyperlipidemia: Code(s): E78.2 - Mixed hyperlipidemia Category: Medical Plan: Results of her labs done last week reviewed and discussed with patient - her cholesterol levels have gone up slightly from previous and are now borderline high, with her total cholesterol now at 217 mg/dl and her LDL cholesterol at 130 mg/dl Reinforced low cholesterol diet Will have patient recheck her labs and fasting lipids in 4 months for follow up (3) Impaired fasting glucose: Code(s): R73.01 - Impaired fasting glucose Category: Medical Plan: Her FBS is slightly elevated at 105 mg/dl; her HgbA1c is normal at 5.4% Reinforced low calorie/low carb diet Will recheck her FBS and HgbA1c in a few months for follow up (4) Ulcerative colitis: Code(s): K51.90 - Ulcerative colitis, unspecified, without complications Category: Medical Qualifiers: Digestive disease complication type: without complication Ulcerative colitis location: unspecified ulcerative colitis location Qualified Code(s): K51.90 - Ulcerative colitis, unspecified, without complications Plan: Stable/controlled Continue Balsalazide 750 mg BID - Rx refilled She had her follow up colonoscopy last done in 2023 - colonoscopy was reportedly normal Follow up with GI as scheduled for continuing management of her inflammatory bowel condition (5) Osteoporosis: Code(s): M81.0 - Age-related osteoporosis without current pathological fracture Category: Medical Qualifiers: Osteoporosis type: age-related Presence of current pathological fracture: without current pathological fracture Qualified Code(s): M81.0 - Age- related osteoporosis without current pathological fracture Plan: Her repeat BMD done back in January 2025 revealed a T score of -2.8, consistent wit h osteoporosis Patient now thinks that she has been on Alendronate for over 5 years now, with her previous BMD done while she was still residing down in [place] - thinks that this was likely at least 10 years ago or longer Have advised her to continue on her Alendronate 70 mg once a week but to just finish up what medication she has left and then DISCONTINUE it As it does not appear that we will be able to get a copy of her previous BMD for review (it was likely done over 10 years ago down in [place], per patient's best recollection), we will just consider her BMD done in January 2025 to be her baseline or index screen We will try to see if we can get her to do another BMD in 1 year to reassess her for any change or decline in her BMD and if she continues to show progression of her osteoporosis, then we will need to consider starting her on another Tx option for her osteoporosis like Prolia She is reminded to continue exercising regularly and to continue taking her OTC Calcium and Vitamin D supplements daily Fall precautions again reinforced (6) Right hip pain: Code(s): M25.551 - Pain in right hip Category: Medical Plan: Right hip x-rays done a few months ago in February 2025 showed only (+) mild degenerative changes in the hip Patient states that her right hip pain has been slowly subsiding and she does not wish to have anything else done for her hip at this time (7) Left knee pain: Code(s): M25.562 - Pain in left knee Category: Medical Qualifiers: Chronicity: unspecified Qualified Code(s): M25.562 - Pain in left knee Plan: Patient declines offer to send her for left knee x-rays at this time but states she will call for the order if her knee pain gets worse Thinks that her knee pain is actually starting to subside - she likely sustained some sprain of her left knee recently without realizing it (8) Vertigo: Code(s): R42 - Dizziness and giddiness Category: Medical Plan: States that she still has occasional bouts of vertigo but these tend to be self- limited and last only for a few minutes Continue Meclizine 25 mg QD PRN (9) Anxiety: Code(s): F41.9 - Anxiety disorder, unspecified Category: Medical Plan: Continue Lorazepam 0.5 mg PRN - Rx refilled Plan Follow up in 4 months Orders: Orders Comprehensive Bison. Panel Fast 4 Months E78.00 - Pure hypercholesterolemia, unspecified Lipid Panel 4 Months E78.00 - Pure hypercholesterolemia, unspecified TSH reflex Free T4 4 Months E78.00 - Pure hypercholesterolemia, unspecified Vitamin D 25-OH Total 4 Months E55.9 - Vitamin D deficiency, unspecified Hemoglobin A1c 4 Months R73.01 - Impaired fasting glucose Complete Blood Count Auto Diff 4 Months D64.9 - Anemia, unspecified UA CC w/rflx Micro + Cult 4 Months R30.0 - Dysuria Medications: Refilled balsalazide 750 mg PO BID 180 caps 1RF 90 days K51.90 - Ulcerative colitis, unspecified, without complications amlodipine 5 mg PO DAILY 90 tabs 1RF 90 days I10 - Essential (primary) hypertension lisinopril 20 mg PO DAILY 90 tabs 1RF 90 days I10 - Essential (primary) hypertension lorazepam 0.5 mg PO DAILY PRN 90 tabs 0RF anxiety 90 days F41.9 - Anxiety disorder, unspecified
[2025-07-04 10:08] VITALS: BP 110/78; PULSE 86; O2SAT 98; BMI 24.0
== END 2025-07-04 10:38 | disposition home or self-care (01) ==
LOC: HO.HMCH 10:06
PROVIDERS: PCP Internal Medicine; Visit Provider Internal Medicine
DX: I10 Essential (primary) hypertension (principal); E78.2 Mixed hyperlipidemia; R73.01 Impaired fasting glucose; K51.90 Ulcerative colitis, unspecified, without complications; M81.0 Age-related osteoporosis without current pathological fracture; M25.551 Pain in right hip; M25.562 Pain in left knee; R42 Dizziness and giddiness; F41.9 Anxiety disorder, unspecified

== ENCOUNTER → 2025-07-04 10:05 | Outpatient (BNVA) | payer OTHER, SELFPAY | PROVIDERS: PCP Internal Medicine; Visit Provider Internal Medicine | DX: M25.562 Pain in left knee (principal); I10 Essential (primary) hypertension; E78.2 Mixed hyperlipidemia; M25.551 Pain in right hip; R73.01 Impaired fasting glucose; K51.90 Ulcerative colitis, unspecified, without complications; M81.0 Age-related osteoporosis without current pathological fracture; R42 Dizziness and giddiness; F41.9 Anxiety disorder, unspecified | CPT/HCPCS: 96127 ==

== ENCOUNTER 2025-07-07 09:57 | Day surgery (SDC) | payer OTHER, SELFPAY ==
--- OUTSIDE RECORDS SUMMARY | 2025-06-15 17:34 | XMS_ITS | Patient Health Record ---
Author Organization [facility] Address [address] [place] [address] Care Team Providers Care Tire Manager Name Role Phone Jacquie Roberta Primary Care Provider Komal coello Mac Abner Unavailable [phone] Allergies Allergen (clinical drug ingredient) Drug/Non Drug Allergy documented on EMR Reaction Allergy Type Onset Date Status acetaminophen / oxycodone Percocet Unknown Drug Allergy Active amoxicillin Amoxicillin Unknown Drug Allergy Act kevin Reason For Referral No Information Medications Medication SIG (Take, Route, Fr equency, Duration) Notes Start Date End Date Status Amlodipine Active Lisinopril Active Balsalazide Disodium Active Alendronate Sodium A ctive Social History Social History Additional Details Category Social Info Options Details Drugs/Alcohol: Alcohol Use: none Tobacco use Nonsmoker Problems Problem Type SNOMED Code ICD Code Onset Dates Problem Status W/U Status Risk Notes Problem Ulcerative colitis (50296084) Other ulcerative colitis without complications (K51.80) Active confirmed Problem Left sided ulcerative colitis (956068148) Left sided colitis without complications (K51.50) Active [...] Date Coverage End Date [employer] [address] [place] [address] [id number] Katharina Mcfarland Self - patient is the insured Medical (General) History Medical History History ICD Code UC HPB OSTEOPOROSIS Surgical History Surgery Date(Month/Year) GALLBLADDER HYSTERECTOMY sacrocopopexy
--- NOTE | 2025-07-04 13:47 | P.CONAN_ITS ---
Documented by User: Alise Persaud NP 07/04/25 14:36 HPI - Anesthesia Eval Consult details Narrative: 70 yr old female for colonoscopy Ulcerative colitis: on balsalazide PMFSH Active Problems Active Problems: All Active Problems (Updated 02/24/25 @ 14:30 by THAI Thomas) Preoperative clearance (Acute) Right hip pain (Acute) Impaired fasting glucose (Acute) Mixed hyperlipidemia (Acute) Breast cancer screening (Acute) Vertigo (Acute) Anxiety (Acute) Osteoporosis (Acute) Essential hypertension (Acute) Ulcerative colitis (Acute) Past Medical History Medical History H/O irritable bowel syndrome Mixed hyperlipidemia Vertigo Anxiety Osteoporosis Essential hypertension Ulcerative colitis Family History Family History Other Dementia Surgical History Surgical History H/O blepharoplasty H/O endoscopy History of surgery History of colonoscopy History of elbow surgery History of left knee surgery Hx of vaginal hysterectomy Social History Social History Housing: House Patient Tobacco Use Status: Never used Tobacco e-Cigarette/Vaping Use: Never Used Second Hand Smoke Exposure: No Use of substances other than those prescribed or required for medical reasons: No Are you DNR?: No Advance Directives: No Advance Directives Information Provided: Yes Patient : No : No service: No Current occupational status: retired Current occupational exposures/hazards: No Cognitive needs: No Hearing needs: No Vision needs: No Meds Allergies Allergy/AdvReac Type Severity Reaction Status Date / Time amoxicillin AdvReac Severe uti Verified 07/07/25 11:03 oxycodone (From Percocet) AdvReac Severe Anxiety Verified 07/04/25 10:22 Home Medications ?Medication ?Instructions ?Recorded ?Confirmed ?Last Taken ?Type amlodipine 5 mg tablet 5 mg PO BEDTIME 07/07/2511/26 Unknown History Documented by User: Kary Contreras MD 07/07/25 12:21 [facility] Past Medical History Medical History H/O irritable bowel syndrome Mixed hyperlipidemia Vertigo Anxiety Osteoporosis Essential hypertension Ulcerative colitis Family History Family History Other Dementia Family history of problems with anesthesia: No Surgical History Surgical History H/O blepharoplasty H/O endoscopy History of surgery History of colonoscopy History of elbow surgery History of left knee surgery Hx of vaginal hysterectomy History of Problems with Anesthesia: No Social History Social History Housing: House Patient Tobacco Use Status: Never used Tobacco e-Cigarette/Vaping Use: Never Used Second Hand Smoke Exposure: No Use of substances other than those prescribed or required for medical reasons: No Are you DNR?: No Advance Directives: No Advance Directives Information Provided: Yes Patient : No : No service: No Current occupational status: retired Current occupational exposures/hazards: No Cognitive needs: No Hearing needs: No Vision needs: No Meds Allergies Allergy/AdvReac Type Severity Reaction Status Date / Time amoxicillin AdvReac Severe uti Verified 07/07/25 11:03 oxycodone (From Percocet) AdvReac Severe Anxiety Verified 07/04/25 10:22 Home Medications ?Medication ?Instructions ?Recorded ?Confirmed ?Last Taken ?Type amlodipine 5 mg tablet 5 mg PO BEDTIME 07/07/2511/26 Unknown History Exam Airway Mallampati Class: II TM Dist: <=3cm Neck ROM: Full Heart: rrr Lungs: cta Assessment and Plan Assessment Anesthesia Assessment: Anesthesia Plan Discussed and Chart Reviewed Final Anesthetic Review Family History of Problems with Anesthesia: No History of Problems with Anesthesia: No NPO: Yes ASA Class: III Final Preanesthetic Review: No Changes in Pt Med Stat, Meds/Allgs Chart Reviewed, Consent Obtained/Reviewed and Anes Risks/Benef Reviewed Patient Risk: Intermediate Procedure Risk: Low Anesthetic Plan Anesthetic Plan: MAC: and Agree w/ Assess. and Plan Disposition: Standard PACU
[2025-07-05 12:46] VITALS: BMI 23.0
[2025-07-07] VITALS (8 sets, daily range): BP systolic 137–152; BP diastolic 66–78; PULSE 72–83; RESP 16; TEMP 36.1–36.6; O2SAT 93–98; BMI 23.6
--- NOTE | 2025-07-07 11:19 | MHC.SHP ---
Pre-Procedural Eval Section A - 24 Hr Update-Section A only Date of Service: 07/07/25 Section B - Complete if H&P > 30 days Chief Complaint: Ulcerative colitis, unspecified, Details of Present Illness: Vertigo Anxiety Osteoporosis Essential hypertension Ulcerative colitis Surgical History History of colonoscopy History of elbow surgery History of left knee surgery Hx of vaginal hysterectomy Present Medications: see Short Stay Collaborative assessment Allergies: Allergies Allergy/AdvReac Type Severity Reaction Status Date / Time amoxicillin AdvReac Severe uti Verified 07/07/25 11:03 oxycodone (From Percocet) AdvReac Severe Anxiety Verified 07/04/25 10:22 Review of Systems Review of Systems Comment: Ten point ROS negative Exam Exam Comment: Gen appear: No acute distress HEENT: no icterus Chest: No overt resp distress Abd: soft, nontender, nondistended Psych: Stable affect, answering questions appropriately Neuro: A/Ox3 noted to move all extremities spontaneously Ext: no peripheral edema Plan Diagnosis/Plan: Unchanged I have reviewed the history and physical and performed a pertinent physical examination on my patient. No changes have occurred unless specified. Time Spent With Patient Time: Total time managing care of this patient today ____ minutes.
[2025-07-07] MEDS: Lactated Ringers 1,000 ML 100 ML IVCONT (11:23)
--- NOTE | 2025-07-07 12:43 | P.OPN-COLO_ITS ---
Colonoscopy Operative Note Operative Note Date of Service: 07/07/25 Narrative: Procedure: Colonoscopy Indication: Ulcerative colitis Endoscopist: Dara Ragland MD Anesthesia Provider: Dr Harvey Anesthesia type: MAC Instrument: Olympus [id number]-[id number] Consent: Indication, risks vs benefits, and alternatives were discussed with the patient who gave written informed consent to proceed. EKG, pulse, pulse oximetry and blood pressure were monitored throughout the procedure. Please see anesthesia flowsheet. Procedure: The patient was brought to the procedure room and placed in the left lateral decubitus position. IV medications were administered by the anesthesia provider in attendance. A digital rectal exam was performed which was abnormal due to finding of hemorrhoids. A distal attachment cap was affixed to the tip of the colonoscope which was then inserted through the anus and advanced through the colon to the cecum at 75 cm,and terminal ileum. Appendiceal orifice and ileocecal valve were identified. Mucosa was carefully examined under high definition white light as the instrument was slowly withdrawn in a retrograde panoramic fashion. Retroflexion was performed in rectum. The procedure was not difficult. There were no immediate obvious complications. The quality of the prep was BBPS: 2+2+3 = adequate Withdrawal time 16 minutes. Limitations: No limitations. Findings: Mucosa: There were deep linear ulcerations with edema and luminal narrowing from 20 cm to 50 cm suspicious for colon ischemia with abrupt cut off and normal mucosa after 50 cm. Rectal mucosa appeared endoscopically normal. Terminal ileum mucosa was normal. Cold forceps biopsies were taken for histology. Protruding lesions: * Medium internal hemorrhoids without stigmata of recent bleeding. Impression: 1. R/O colon ischemia 3. Internal hemorrhoids Recommendations: - Follow path results. - Check stat CBC, CMP, lactate and LDH - if abnormal, pt will be referred to ER for obs admission. Otherwise will discharge to home with instructions for CLD today.
[2025-07-07 13:42] LABS: MANUAL DIFF FLAG NO
[2025-07-07 13:45] LABS: Hematocrit 41.1 % (37.0-47.0); Hemoglobin 14.0 g/dl (12.0-16.0); Imm Gran Abs Auto 0.06 X10*3/uL (0.00-0.03); Imm Gran Pct Auto 0.5 % (0.0-0.4); Lymphocytes Absolute Auto 2.1 X10*3/uL (1.2-4.9); Mean Corpuscular HGB Conc 34.1 g/dl (31.0-35.0); Mean Corpuscular Hemoglobin 31.8 pg (27.0-33.0); Mean Corpuscular Volume 93.4 fL (80.0-98.0); NRBC Abs Auto 0.000 X10*3/uL (0.0-0.012); NRBC Pct Auto 0.0 /100WBC (0.0-0.2); Platelet Count 222 X10*3/uL (160-400); Red Blood Count 4.40 X10*6/uL (4.20-5.50); White Blood Count 13.1 X10*3/uL (4.8-10.8)
[2025-07-07 14:06] LABS: Alanine Aminotransferase 11 U/L (0-31); Albumin Level 4.3 g/dL (3.5-5.0); Alkaline Phosphatase 55 U/L (39-117); Anion Gap 11 (12-20); Aspartate Amino Transferase 16 U/L (5-31); Blood Urea Nitrogen 14 mg/dL (9-16); Calcium 8.6 mg/dL (8.4-10.2); Carbon Dioxide 26 mmol/L (22-29); Chloride 109 mmol/L (96-108); Creatinine Clr Calc Pharmacy 60.9; Estimated Glomerular Filt Rate > 60; Potassium 4.1 mmol/L (3.3-5.1); Sodium 142 mmol/L (135-145); Total Protein 6.6 g/dL (6.5-8.0)
== END 2025-07-07 15:04 | disposition home or self-care (01) ==
PROVIDERS: PCP Internal Medicine; Visit Provider Internal Medicine
PROC: 0DJD8ZZ Inspection of Lower Intestinal Tract, Via Natural or Artificial Opening Endoscopic (ICD-10-PCS; CPT 45378; principal; 2025-07-07 12:10)
DX: K51.90 Ulcerative colitis, unspecified, without complications (principal); K64.8 Other hemorrhoids
CPT/HCPCS: 45380; 36415; 80053; 83605; 83615; 85025; 88305; J2003; J2250; J2704; J3010

== ENCOUNTER → 2025-07-07 09:57 | Outpatient (BNV) | payer OTHER, SELFPAY | PROVIDERS: PCP Internal Medicine; Visit Provider Internal Medicine | DX: K51.90 Ulcerative colitis, unspecified, without complications (principal); K64.8 Other hemorrhoids | CPT/HCPCS: 45380 ==

== ENCOUNTER 2025-07-25 12:14 | Outpatient (AMB) | payer OTHER, SELFPAY ==
--- NOTE | 2025-07-25 12:21 | MHC.OFFVIS ---
Vital Signs 07/25/25 12:31 Height 5 ft 3 in Weight 132 lb 4.438 oz BMI 23.4 BP 133/61 Blood Pressure Location Lt brachial Position Sitting Pulse 71 Intake Visit Reasons: S/P [place]; Dr. Poalnco Intake Note: Katharina presents in the office as a follow up colonoscopy. CC: States she is here for results - states she has cramps Lining Sewer Required: No Allergies amoxicillin Adverse Reaction (Severe, Verified 07/07/25 11:03) uti oxycodone (From Percocet) Adverse Reaction (Severe, Verified 07/04/25 10:22) Anxiety HPI Comments Details: 69 y.o F with PMH of UC diagnosed in her 40s, prev used to be under care of Dr Calvert and then moved to [place] in 2018. Returned Jul 2024 so looking to establish care. IBD Hx: Location: Pt doesnt know Age/yr of diagnosis: Early 2004, 49 y.o Prev meds: Asacol Current meds: balsalazide 750 BID since 2020 Steroid use: 1-2 times - 2022 for a flare Surgeries: N/A Recent endoscopy: 2022 in [facility] Recent imaging: EIM: None Fam hx: possibly in aunt - had her colon taken out Currently intermittent abd discomfort in the suprapubic area. Has 1-2 BMs per day that are formed. No blood. No joint pains, vision changes. 07/07/25 colo: Mucosa: There were deep linear ulcerations with edema and luminal narrowing from 20 cm to 50 cm suspicious for colon ischemia with abrupt cut off and normal mucosa after 50 cm. Rectal mucosa appeared endoscopically normal. Terminal ileum mucosa was normal. Cold forceps biopsies were taken for histology. Protruding lesions: Medium internal hemorrhoids without stigmata of recent bleeding. Path: A. Cecum, biopsy: Focally active colitis. B. Colon, ascending, biopsy: Colonic mucosa within normal limits. C. Colon, transverse, biopsy: Colonic mucosa within normal limits. D. Colon, 50 cm, biopsy: Colonic mucosa with crypt regenerative changes; otherwise within normal limits. E. Colon, 40 cm, biopsy: Active erosive colitis; detached mucoinflammatory material; fully developed chronic injury not identified. F. Colon, 30 cm, biopsy: Active erosive colitis; fully developed chronic injury not identified. G. Colon, 20 cm, biopsy: Active erosive colitis; fully developed chronic injury not identified. H. Rectum, biopsy: Rectal mucosa within normal limits. Comment: No dysplasia is identified. The findings suggest ischemic injury 07/25/25: Here for follow up. [place] reviewed - had colon ischemia. Reviewed could have been prep induced but can not r/o chronic mesenteric ischemia exacerbated by hypotension/dehydration. CTA ordered and romi for Aug. If CTA without any vascular compromise, will go ahead and romi repeat colo for colitis assessment. If she is in deep remission can potentially come off the 5-ASA tx. Pt otherwise asymptomatic no abd pain, N,V, [facility] Medical History H/O irritable bowel syndrome Mixed hyperlipidemia Vertigo Anxiety Osteoporosis Essential hypertension Ulcerative colitis Surgical History H/O blepharoplasty H/O endoscopy History of surgery History of colonoscopy History of elbow surgery History of left knee surgery Hx of vaginal hysterectomy Family History Other Dementia Social History Housing: House Patient Tobacco Use Status: Never used Tobacco e-Cigarette/Vaping Use: Never Used Second Hand Smoke Exposure: No service: No Current occupational status: retired Current occupational exposures/hazards: No Cognitive needs: No Hearing needs: No Vision needs: No Review of Systems Const All systems reviewed & are unremarkable except as noted in HPI and below Physical Exam Vital Signs: Last Vital Signs Pulse 71 07/25/25 12:31 BP 133/61 07/25/25 12:31 BMI result Body Mass Index 23.4 Assessment & Plan Assessment & Plan (1) Ulcerative colitis: Code(s): K51.90 - Ulcerative colitis, unspecified, without complications Category: Medical Qualifiers: Ulcerative colitis location: unspecified ulcerative colitis location Digestive disease complication type: without complication Qualified Code(s): K51.90 - Ulcerative colitis, unspecified, without complications (2) Ischemic colitis: Code(s): K55.9 - Vascular disorder of intestine, unspecified Plan Ischemic colitis Likely prep induced vs chronic mesenteric ischemia exacerbated by dehydration/hypotension. Plan: - CTA abd/pel - If normal, will proceed with colo - Will give plenvu prep - Pt also advised to hold at least 1 anti-hypertensive before colo - IF CTA with stenosis/atherosclerotic disease will refer to vascular surgery Ulcerative colitis. - Quiescent based on clinical hx - Disease and therapy: remission. - Repeat colo to be booked for histological eval as above. If has deep remission, can potentially trial off 5-ASA therapy - Nutrition: Normal B12 folate and Vit D - Immunization: Uptodate - Bone Health: Known osteoporosis. Vit D normal. - Cancer prevention: IBD dysplasia: colonoscopy due as above. Will utilize small volume prep such as plenvu with plenty of hydration. Sun safety discussed. Up to date on pap and mammo. Follow up after repeat colo Coding Level of Care Code Est Pt Level 4 (90827) Diagnoses Ulcerative colitis without complications, unspecified location K51.90 Ulcerative colitis location: unspecified ulcerative colitis location Digestive disease complication type: without complication Ischemic colitis K55.9
[2025-07-25 12:31] VITALS: BP 133/61; PULSE 71; BMI 23.4
--- OUTSIDE RECORDS SUMMARY | 2025-07-25 15:28 | XMS_ITS | Patient Health Record ---
Author Organization [facility] Address [address] [place] [address] Care Team Providers Care Denial Resolution Specialist Name Role Phone Jacquie Roberta Primary Care Provider Komal coello Mac Abner Unavailable [phone] Allergies Allergen (clinical drug ingredient) Drug/Non Drug [...] W/U Status Risk Notes Problem Ulcerative colitis (12146380) Other ulcerative colitis without complications (K51.80) Active confirmed Problem Left sided ulcerative colitis (157342649) Left sided colitis without complications (K51.50) Active [...] End Date [employer] [address] [place] [address] [id number] Katharina Mcfarland Self - patient is the insured Medical (General) History Medical History History ICD Code UC HPB OSTEOPOROSIS Surgical History Surgery Date(Month/Year) sacrocopopexy 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
== END 2025-07-25 13:10 | disposition home or self-care (01) ==
LOC: HO.HGI 12:14
PROVIDERS: Visit Provider Internal Medicine
DX: K51.90 Ulcerative colitis, unspecified, without complications (principal); K55.9 Vascular disorder of intestine, unspecified
CPT/HCPCS: 99214